=== PATIENT | female | born 1970 | race Caucasian/White ===

== ENCOUNTER 2023-11-24 18:58 | Outpatient (CLI) | payer OTHER, SELFPAY | END 2023-11-24 23:59 | LOC: LAB.DROPOF 18:58 | PROVIDERS: PCP Nurse Practitioner; Visit Provider Nurse Practitioner | DX: B35.1 Tinea unguium (principal); M79.674 Pain in right toe(s) | CPT/HCPCS: 87102; 87206; 87220 ==

== ENCOUNTER 2024-06-20 10:48 | Outpatient (CLI) | payer OTHER, SELFPAY ==
--- NOTE | 2024-06-20 10:51 | CT_ITS ---
FINAL REPORT CLINICAL HISTORY: CURRENT SMOKER 1PPD X40 YEARS COMPARISON: No prior FINDINGS: Axial images were obtained from the lung apex to the mid abdomen by computed tomography. Low-dose protocol was utilized. CTDl vol(mGy): 2.90 DLP (mGy-cm): 97.68 FINDINGS: There is no axillary adenopathy. There is no hilar or mediastinal adenopathy. The heart size is normal. There is no pericardial or pleural effusion. Limited images of the upper abdomen are unremarkable. Lung window images demonstrate no suspicious infiltrate or nodule. There is linear scarring in the right midlung and lingula. IMPRESSION: Lung RADS category 1. Recommend 12 month follow-up low-dose chest CT. Reviewed, Interpreted and Dictated by Candido Sol MD Transcribed by Ketty Mark Authenticated and [facility]
== END 2024-06-20 23:59 | disposition home or self-care (01) ==
LOC: RAD 10:48
PROVIDERS: PCP Nurse Practitioner Family; Visit Provider Nurse Practitioner Family
DX: Z12.2 Encounter for screening for malignant neoplasm of respiratory organs (principal); F17.210 Nicotine dependence, cigarettes, uncomplicated
CPT/HCPCS: 71271

== ENCOUNTER 2025-02-08 12:45 | Outpatient (CLI) | payer OTHER, SELFPAY ==
--- OUTSIDE RECORDS SUMMARY | 2025-01-30 06:49 | XMS_ITS | Continuity of Care Document ---
Author Organization [facility] Phone Care Team Providers Care Settlement Clerk Name Role Phone DECLINED, PCP Primary Care Unavailable EMRE ROBERTS Admitting EMRE ROBERTS Primary Attending EMRE ROBERTS Unavailable ALLERGIES AND ADVERSE REACTIONS ALLERGIES AND ADVERSE REACTIONS Code System Allergy Substance Adverse Reaction Date Reaction (Severity) Comment Status Reported By Updated By [id number] RXNorm Phenergan Adverse reaction to substance Not Specified active [id number] on April 19, 2024 7:44:45 PM UTC RESULTS Patient: PLAYER KEY Caldwell Date of : 1970 7 LABORATORY RESULTS ORDER 100: THYROID STIMULATI NG HORMONE (LOINC: 3016-3) ORDER DATE: January 27, 2025 5:00:00 PM UTC Specimen Source: Serum/Plasm a Specimen Type: Acellular blo od (serum or plasma) specimen PERFORMING LAB: [address] [id number] Result Comment: Final Result Date: January 27, 2025 5:45:00 PM UTC (TECH: KSM) LOINC TEST FLAG RESULT REFERENCE RANGE [place] BY 3016-3 Thyrotropin [Units/volume] in Serum or Plasma N 0.50 mIU/mL 0.34 mIU/mL - 4.80 mIU/mL January 27, 2025 5:45:00 PM UTC (TECH: KSM) ORDER 200: LIPID PANEL (LOIN C: 56818-9) ORDER DATE: January 27, 2025 5:00:00 PM UTC Specimen Source: Serum/Plasm a Specimen Type: Acellular blo od (serum or plasma) specimen PERFORMING LAB: [address] [id number] Result Comment: Final Result Date: January 27, 2025 5:45:00 PM UTC (TECH: KSM) LOINC TEST FLAG RESULT REFERENCE RANGE [place] BY 2571-8 Triglyceride [Mass/volume] in Serum or Plasma N 93 mg/dL 20 mg/dL - 200 mg/dL January 27, 2025 5:45:00 PM UTC (TECH: KSM) 3-3 Cholesterol [Mass/volume] in Serum or Plasma N 105 mg/dL 0 mg/dL - 200 mg/dL January 27, 2025 5:45:00 PM UTC (TECH: KSM) 2084-9 Cholesterol in HDL [Mass/volume] in Serum or Plasma L 48 mg/dL 60 mg/dL January 27, 2025 5:45:00 PM UTC (TECH: KSM) 44663-4 Cholesterol in LDL [Mass/volume] in Serum or Plasma by calculation L 38 mg/dL 100 mg/dL January 27, 2025 5:45:00 PM UTC (TECH: KSM) 8 Cholesterol in HDL/Cholesterol.tota l [Mass Ratio] in Serum or Plasma N 2 - 5 January 27, 2025 5:45:00 PM UTC (TECH: KSM) ORDER 300: AST SGOT (LOINC: 192-) ORDER DATE: January 27, 2025 5:00:00 PM UTC Specimen Source: Serum/Plasm a Specimen Type: Acellular blo od (serum or plasma) specimen PERFORMING LAB: [address] [id number] Result Comment: Final Result Date: January 27, 2025 5:45:00 PM UTC (TECH: KSM) LOINC TEST FLAG RESULT REFERENCE RANGE [place] BY 0-8 Aspartate aminotransferase [Enzymatic activity/volume] in Serum or Plasma N 18 U/L 15 U/L - 37 U/L January 27, 2025 5:45:00 PM UTC (TECH: KSM) ORDER 400: ALT SGPT (LOINC: 1742-6) ORDER DATE: January 27, 2025 5:00:00 PM UTC Specimen Source: Serum/Plasm a Specimen Type: Acellular blo od (serum or plasma) specimen PERFORMING LAB: [address] [id number] Result Comment: Final Result Date: January 27, 2025 5:45:00 PM UTC (TECH: KSM) LOINC TEST FLAG RESULT REFERENCE RANGE [place] BY 1742-6 Alanine aminotransfe rase [Enzymatic activity/volume] in Serum or Plasma N 23 U/L 12 U/L - 78 U/L January 27, 2025 5:45:00 PM UTC (TECH: KSM) ORDER 500: PHOSPHOROUS (LOIN C: 2777-1) ORDER DATE: January 27, 2025 5:00:00 PM UTC Specimen Source: Serum/Plasm a Specimen Type: Acellular blo od (serum or plasma) specimen PERFORMING LAB: [address] [id number] Result Comment: Final Result Date: January 27, 2025 5:45:00 PM UTC (TECH: KSM) LOINC TEST FLAG RESULT REFERENCE RANGE [place] BY 2777-1 Phosphate [Mass/volume] in Serum or Plasma N 3.6 mg/dL 2.5 mg/dL - 4.9 mg/dL January 27, 2025 5:45:00 PM UTC (TECH: KSM) ORDER 600: BILIRUBIN TOTAL ( LOINC: 1974-) ORDER DATE: January 27, 2025 5:00:00 PM UTC Specimen Source: Serum/Plasm a Specimen Type: Acellular blo od (serum or plasma) specimen PERFORMING LAB: [address] [id number] Result Comment: Final Result Date: January 27, 2025 5:45:00 PM UTC (TECH: KSM) LOINC TEST FLAG RESULT REFERENCE RANGE [place] BY 1974-2 Bilirubin.total [Mass/volume] in Serum or Plasma L 0.3 mg/dL 0.4 mg/dL - 1.5 mg/dL January 27, 2025 5:45:00 PM UTC (TECH: KSM) ORDER 700: ALKALINE PHOSPHAT ASE ALP (LOINC: 6768-6) ORDER DATE: January 27, 2025 5:00:00 PM UTC Specimen Source: Serum/Plasm a Specimen Type: Acellular blo od (serum or plasma) specimen PERFORMING LAB: [address] [id number] Result Comment: Final Result Date: January 27, 2025 5:45:00 PM UTC (TECH: KSM) LOINC TEST FLAG RESULT REFERENCE RANGE [place] BY 6768-6 Alkaline phosphatase [Enzymatic activity/volume] in Serum or Plasma N 84 U/L 50 U/L - 120 U/L January 27, 2025 5:45:00 PM [facility] (TECH: CARITO) LABORATORY NARRATIVE RESULTS Information is not available RADIOLOGY RESULTS Information is not available PATHOLOGY NARRATIVE RESULTS Information is not available MICROBIOLOGY RESULTS No Micro Labs/Results Exist for Patient BLOOD ADMIN RESULTS Information is not available MEDICATIONS HOME MEDICATIONS Status RXNORM NDC Medication Dose Route Frequency Dates Comments Reported By Updated By Drug Treatment Unknown DISCHARGE MEDICATIONS Status RXNORM NDC Medication Dose Route Frequency Dates Comments Physician Updated By No Discharge Medication Info rmation Available INPATIENT MEDICATIONS Status RXNORM NDC Medication Dose Route Frequency Rat e Quantity Dates Comments Physician Updated By No Inpatient Medication Info rmation Available SOCIAL HISTORY SOCIAL HISTORY SNOMED-CT Social History Element Description Effective Dates Offered Cessation Comment UpdatedBy [id number] Smoking Status Unknown If Ever Smoked SOCIAL HISTORY - Gender Sex: Female SOCIAL HISTORY - Status : status i nformation is not available Intention in Next Year: intention information is not available SOCIAL HISTORY - Sexual Behavior Sexual Orientation Gender Identity SNOMED-CT Description SNO MED -CT Description Activity Level No of Partners Partner Type UpdatedBy Information is not available HEALTH CONCERNS Problems Concern Status Health Concern problem infor mation not available. Smoking Status Status Years Used Consumed packs p er day Health Concern smoking histo ry information not available. Family History Concern Status Health Concern family histor y information not available. ENCOUNTERS ENCOUNTER INFORMATION Reason for Visit E11.9 Admission January 27, 2025 4:30:[address] [address] Discharge January 27, 2025 4:30:00 PM [facility] DISC HARGED TO HOME OR SELF CARE ENCOUNTER DIAGNOSES Notes information is not escobar ilable. Code System Diagnosis Onset Date Diagnosis information is not available. 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 COMPLICATION [id number] on January 30, 2025 10:48:37 AM UTC E78.2 ICD10 MIXED HYPERLIPIDEMIA [id number] on January 30, 2025 10:48:37 AM UTC F41.9 ICD10 ANXIETY DISORDER, UNSPECIFIE D [id number] on January 30, 2025 10:48:37 AM UTC R80.9 ICD10 PROTEINURIA, UNSPECIFIED GVI [id number] on January 30, 2025 10:48:37 AM UTC CARE TEAM Care Settlement Clerk Role PCP DECLINED Primary Care EMRE ROBERTS Admitting EMRE ROBERTS Primary Attending ERME ROBERTS Referring CARE TEAM CARE centerpuncher Role on Team Status Start Date End Date Update d By ARMANDO CASTILLO APRN Referring normal January 27, 2025 4:00:00 AM UTC January 27, 2025 4:30:00 PM UTC [id number] on January 27, 2025 4:34:55 PM UTC ARMANDO CASTILLO APRN Attending normal January 27, 2025 4:00:00 AM UTC January 27, 2025 4:30:00 PM UTC [id number] on January 27, 2025 4:34:55 PM UTC ARMANDO CASTILLO APRN Admitting normal January 27, 2025 4:00:00 AM UTC January 27, 2025 4:30:00 PM UTC [id number] on January 27, 2025 4:34:55 PM UTC DECLINED PCP PCP normal January 27, 2025 4:00:00 AM UTC January 27, 2025 4:30:00 PM UTC [id number] on January 27, 2025 4:34:55 PM UTC
--- OUTSIDE RECORDS SUMMARY | 2025-01-30 06:53 | XMS_ITS | Continuity of Care Document ---
Author Organization [facility] Phone Care Team Providers Care Adjunct Spanish Instructor Name Role Phone FRANCK DECKER JR Unavailable DECLINED, PCP Primary Care Unavailable FRANCK DECKER JR Admitting [phone] FRANCK DECKER JR Primary Attending ALLERGIES AND ADVERSE REACTIONS ALLERGIES AND ADVERSE REACTIONS Code System Allergy Substance Adverse Reaction Date Reaction (Severity) Comment Status Reported By Updated By 1116 RXNorm Phenergan Adverse reaction to substance Not Specified active [id number] on April 19, 2024 7:44:45 PM UTC RESULTS Patient: PLAYER KEY Caldwell Date of : 1970 8 LABORATORY RESULTS ORDER 300: BASIC METABOLIC P NADIYA (LOINC: 00795-5) ORDER DATE: January 27, 2025 4:56:00 PM UTC Specimen Source: Serum/Plasm a Specimen Type: Acellular blo od (serum or plasma) specimen PERFORMING LAB: [address] [id number] Result Comment: Final Result Date: January 27, 2025 5:36:00 PM [place] (TECH: KSM) LOINC TEST FLAG RESULT REFERENCE RANGE [place] BY 2951-2 Sodium [Moles/volume] in Serum or Plasma N 138 mmol/L 136 mmol/L - 145 mmol/L January 27, 2025 5:36:00 PM UTC (TECH: KSM) 2823-3 Potassium [Moles/volume] in Serum or Plasma N 3.9 mmol/L 3.5 mmol/L - 5.1 mmol/L January 27, 2025 5:36:00 PM UTC (TECH: [facility]SM) 2075-0 Chloride [Moles/volume] in Serum or Plasma N 99 mmol/L 98 mmol/L - 107 mmol/L January 27, 2025 5:36:00 PM UTC (TECH: [employer]) 2027-9 Carbon dioxide, total [Moles/volume] in Serum or Plasma H 35 mmol/L 21 mmol/L - 32 mmol/L January 27, 2025 5:36:00 PM UTC (TECH: [employer]) 58653-5 Anion gap 3 in Serum or Plasma N 4.0 January 27, 2025 5:36:00 PM UTC (TECH: [employer]) 2345-7 Glucose [Mass/volume] in Serum or Plasma H 111 mg/dL 70 mg/dL - 110 mg/dL January 27, 2025 5:36:00 PM UTC (TECH: [employer]) 3094-0 Urea nitrogen [Mass/volume] in Serum or Plasma N 18 mg/dL 7 mg/dL - 18 mg/dL January 27, 2025 5:36:00 PM UTC (TECH: [employer]) 2160-0 Creatinine [Mass/volume] in Serum or Plasma N 1.0 mg/dL 0.6 mg/dL - 1.0 mg/dL January 27, 2025 5:36:00 PM UTC (TECH: [employer]) 3097-3 Urea nitrogen/Creatinine [Mass Ratio] in Serum or Plasma N 18.0 9 - January 27, 2025 5:36:00 PM UTC (TECH: [employer]) 54293-6 Glomerular filtration rate/1.73 sq M.predicted by Creatinine-based formula (MDRD) N 67 mL/min >60 January 27, 2025 5:36:00 PM UTC (TECH: [employer]) 05284-0 Osmolality of Serum or Plasma by calculated by sum of electrolytes N 290 mosm/kg 275 mosm/kg - 301 mosm/kg January 27, 2025 5:36:00 PM UTC (TECH: [employer]) 35432-3 Calcium [Mass/volume] in Serum or Plasma N 9.2 mg/dL 8.5 mg/dL - 10.1 mg/dL January 27, 2025 5:36:00 PM UTC (TECH: [employer]) ORDER 400: HEMOGLOBIN A1C (L OINC: 4548-4) ORDER DATE: January 27, 2025 4:56:00 PM UTC Specimen Source: Whole Blood Specimen Type: Whole blood s ample PERFORMING LAB: [address] [id number] Result Comment: Final Result Date: January 27, 2025 5:36:00 PM UTC (TECH: [employer]) LOINC TEST FLAG RESULT REFERENCE RANGE [place] BY 4548-4 Hemoglobin A1c/Hemoglobin.tota l in Blood N 5.8 % 4.5 % - 6.2 % January 27, 2025 5:36:00 PM UTC (TECH: [employer]) 67480-7 Glucose mean value [Mass/volume] in Blood Estimated from glycated hemoglobin N 120 mg/dl 82 mg/dl - 131 mg/dl January 27, 2025 5:36:00 PM UTC (TECH: [employer]) ORDER 500: CBC AUTO W DIFF ( LOINC: 70427-8) ORDER DATE: January 27, 2025 4:56:00 PM UTC Specimen Source: Whole Blood Specimen Type: Whole blood s ample PERFORMING LAB: [address] [id number] Result Comment: Final Result Date: January 27, 2025 5:13:00 PM UTC (TECH: [employer]) LOINC TEST FLAG RESULT REFERENCE RANGE [place] BY 6690-2 Leukocytes [#/volume ] in Blood by Automated count H 12.4 10^3/uL 4.5 10^3/uL - 11.5 10^3/uL January 27, 2025 5:13:00 PM UTC (TECH: [employer]) 789-8 Erythrocytes [#/volu me] in Blood by Automated count N 5.52 10^6/uL 4.25 10^6/uL - 5.57 10^6/uL January 27, 2025 5:13:00 PM UTC (TECH: [employer]SM) 718-7 Hemoglobin [Mass/volume] in Blood H 17.0 g/dL 12.0 g/dL - 15.7 g/dL January 27, 2025 5:13:00 PM UTC (TECH: [employer]) 92894-8 Hematocrit [Volume Fraction] of Blood H 50.7 % 36.0 % - 47.0 % January 27, 2025 5:13:00 PM UTC (TECH: [employer]) 787-2 Erythrocyte mean corpuscular volume [Entitic volume] by Automated count N 91.8 fl 80 fl - 95 fl January 27, 2025 5:13:00 PM UTC (TECH: [employer]) 52907-9 Erythrocyte mean corpuscular hemoglobin [Entitic mass] in Blood from Fetus by Automated count N 30.8 pg 27.0 pg - 34.0 pg January 27, 2025 5:13:00 PM UTC (TECH: [employer]) 32902-7 Erythrocyte mean corpuscular hemoglobin concentration [Mass/volume] in Blood from Fetus by Automated count N 33.5 g/dL 32.0 g/dL - 36.0 g/dL January 27, 2025 5:13:00 PM UTC (TECH: [employer]) 46316-1 Platelets [#/volume] in Blood N 242 10^3/uL 150 10^3/uL - 450 10^3/uL January 27, 2025 5:13:00 PM UTC (TECH: [employer]) 36534-5 Erythrocyte distribution width [Ratio] N 13.0 % 12.3 % - 15.1 % January 27, 2025 5:13:00 PM UTC (TECH: [employer]) 12003-5 Platelet mean volume [Entitic volume] in Blood by Automated count N 9.7 fl 7.4 fl - 10.4 fl January 27, 2025 5:13:00 PM UTC (TECH: [employer]) 76784-7 Granulocytes/100 leukocytes in Blood by Automated count N 70.9 % 40 % - 75 % January 27, 2025 5:13:00 PM UTC (TECH: [employer]) 736-9 Lymphocytes/100 leukocytes in Blood by Automated count N 19.6 % 15 % - 57 % January 27, 2025 5:13:00 PM UTC (TECH: [employer]) 5905-5 Monocytes/100 leukocytes in Blood by Automated count N 6.3 % 4.0 % - 12.0 % January 27, 2025 5:13:00 PM UTC (TECH: [employer]) 713-8 Eosinophils/100 leukocytes in Blood by Automated count N 2.6 % 0.0 % - 4.0 % January 27, 2025 5:13:00 PM UTC (TECH: [employer]) 706-2 Basophils/100 leukocytes in Blood by Automated count N 0.2 % 0.0 % - 1.0 % January 27, 2025 5:13:00 PM UTC (TECH: [employer]) 11772-6 Immature granulocyte s [#/volume] in Blood N 0.4 % 0.0 % - 0.8 % January 27, 2025 5:13:00 PM UTC (TECH: [employer]) 95738-0 Granulocytes [#/volu me] in Blood by Automated count N 8.77 10^3/uL January 27, 2025 5:13:00 PM UTC (TECH: [employer]) 731-0 Lymphocytes [#/volum e] in Blood by Automated count N 2.43 10^3/uL January 27, 2025 5:13:00 PM UTC (TECH: [employer]) 742-7 Monocytes [#/volume] in Blood by Automated count N 0.78 10^3/uL January 27, 2025 5:13:00 PM UTC (TECH: [employer]) 711-2 Eosinophils [#/volum e] in Blood by Automated count N 0.32 10^3/uL January 27, 2025 5:13:00 PM UTC (TECH: [employer]) 704-7 Basophils [#/volume] in Blood by Automated count N 0.02 10^3/uL January 27, 2025 5:13:00 PM UTC (TECH: [employer]) 77034-0 Immature granulocyte s [#/volume] in Blood N 0.05 10^3/uL January 27, 2025 5:13:00 PM UTC (TECH: [employer]) 75007-1 Manual differential performed [Presence] in Blood N NO January 27, 2025 5:13:00 PM UTC (TECH: [employer]) LABORATORY NARRATIVE RESULTS Information is not available [...] Description Effective Dates Offered Cessation Comment UpdatedBy [id number] Smoking Status Unknown If Ever Smoked SOCIAL [...] available. ENCOUNTERS ENCOUNTER INFORMATION Reason for Visit Z87.898 Admission January 27, 2025 4:40:[address] [address] Discharge January 27, 2025 4:40:00 PM [facility] DISC HARGED TO HOME OR SELF CARE ENCOUNTER DIAGNOSES Notes information is not escobar ilable. Code System Diagnosis Onset Date Diagnosis information is not available. ABSTRACT DIAGNOSES Code System Diagnosis Updated By Z01.818 ICD10 ENCOUNTER FOR OT HER PREPROCEDURAL EXAMINATION [id number] on January 30, 2025 10:53:39 AM [facility] R73.09 ICD10 OTHER ABNORMAL GLUCOSE [id number] on January 30, 2025 10:53:39 AM [facility] Z87.898 ICD10 PERSONAL HISTORY OF OTHER SPECIFIED CONDITIONS [id number] on January 30, 2025 10:53:39 AM [facility] Z01.818 ICD10 ENCOUNTER FOR OT HER PREPROCEDURAL EXAMINATION [id number] on January 30, 2025 10:53:39 AM [facility] R73.09 ICD10 OTHER ABNORMAL GLUCOSE [id number] 42 on January 30, 2025 10:53:39 AM [facility] Z87.898 ICD10 PERSONAL HISTORY OF OTHER SPECIFIED CONDITIONS [id number] on January 30, 2025 10:53:39 AM [facility] CARE TEAM Care Adjunct Spanish Instructor Role FRANCK DECKER Referring PCP DECLINED Primary Care FRANCK DECKER Admitting FRANCK DECKER Primary Attending CARE TEAM CARE audio production manager Role on Team Status Start Date End Date Update d By BRIANNE JUÁREZ JR, MD Referring normal January 27, 2025 4:00:00 AM [facility] January 27, 2025 4:40:00 PM [facility] [id number] on January 27, 2025 4:44:41 PM [facility] BRIANNE JUÁREZ JR, MD Attending normal January 27, 2025 4:00:00 AM [facility] January 27, 2025 4:40:00 PM [facility] [id number] on January 27, 2025 4:44:41 PM [facility] BRIANNE JUÁREZ JR, MD Admitting normal January 27, 2025 4:00:00 AM [facility] January 27, 2025 4:40:00 PM [facility] [id number] on January 27, 2025 4:44:41 PM [facility] DECLINED PCP PCP normal January 27, 2025 4:00:00 AM [facility] January 27, 2025 4:40:00 PM [facility] [id number] on January 27, 2025 4:44:41 PM [facility]
--- OUTSIDE RECORDS SUMMARY | 2025-01-30 06:56 | XMS_ITS | Continuity of Care Document ---
Author Organization [facility] Phone Care Team Providers Care Fitter'S Assistant Name Role Phone DECLINED, PCP Primary Care Unavailable FRANCK DECKER JR Unavailable FRANCK DECKER JR Primary Attending [phone] FRANCK DECKER JR Admitting [phone] ALLERGIES AND ADVERSE REACTIONS ALLERGIES AND ADVERSE REACTIONS Code System Allergy Substance Adverse Reaction Date Reaction (Severity) Comment Status Reported By [place] By [id number] RXNorm Phenergan Adverse reaction to substance Not Specified active [id number] on April 19, 2024 7:44:45 PM [facility] MEDICATIONS HOME MEDICATIONS Status RXNORM NDC Medication [...] Description Effective Dates Offered Cessation Comment UpdatedBy [id number] Smoking Status Unknown If Ever Smoked SOCIAL [...] for Visit Z87.898 Admission January 27, 2025 4:45:[address] [address] Discharge January 27, 2025 4:45:00 PM [facility] DISC HARGED TO HOME OR SELF CARE ENCOUNTER DIAGNOSES Notes information is not escobar ilable. Code System Diagnosis Onset Date Diagnosis information is not available. ABSTRACT DIAGNOSES Code System Diagnosis Updated By Z01.818 ICD10 ENCOUNTER FOR OT HER PREPROCEDURAL EXAMINATION [id number] on January 30, 2025 10:56:21 AM [facility] R73.09 ICD10 OTHER ABNORMAL GLUCOSE [id number] 42 on January 30, 2025 10:56:21 AM [facility] Z87.898 ICD10 PERSONAL HISTORY OF OTHER SPECIFIED CONDITIONS [id number] on January 30, 2025 10:56:21 AM [facility] Z01.818 ICD10 ENCOUNTER FOR OT HER PREPROCEDURAL EXAMINATION [id number] on January 30, 2025 10:56:21 AM [facility] I45.10 ICD10 UNSPECIFIED RIGHT BUNDLE-BRA NCH BLOCK [id number] on January 30, 2025 10:56:21 AM [facility] R73.09 ICD10 OTHER ABNORMAL GLUCOSE [id number] 42 on January 30, 2025 10:56:21 AM [facility] R94.31 ICD10 ABNORMAL ELECTROCARDIOGRAM [ ECG] [EKG] [id number] on January 30, 2025 10:56:21 AM [facility] Z87.898 ICD10 PERSONAL HISTORY OF OTHER SPECIFIED CONDITIONS [id number] on January 30, 2025 10:56:21 AM [facility] CARE TEAM Care Fitter'S Assistant Role PCP DECLINED Primary Care FRANCK DECKER Referring FRANKC DECKER Primary Attending FRANCK DECKER Admitting CARE TEAM CARE crab fisher Role on Team Status Start Date End Date Update d By BRIANNE JUÁREZ JR, MD Referring normal January 27, 2025 4:00:00 AM [facility] January 27, 2025 4:45:00 PM [facility] [id number] on January 27, 2025 4:46:48 PM [facility] BRIANNE JUÁREZ JR, MD Attending normal January 27, 2025 4:00:00 AM [facility] January 27, 2025 4:45:00 PM [facility] [id number] on January 27, 2025 4:46:48 PM [facility] BRIANNE JUÁREZ JR, MD Admitting normal January 27, 2025 4:00:00 AM [facility] January 27, 2025 4:45:00 PM [facility] [id number] on January 27, 2025 4:46:48 PM UTC DECLINED PCP PCP normal January 27, 2025 4:00:00 AM UTC January 27, 2025 4:45:00 PM [place] [id number] on January 27, 2025 4:46:48 PM UTC
--- OUTSIDE RECORDS SUMMARY | 2025-01-30 07:02 | XMS_ITS | Continuity of Care Document ---
Author Organization [facility] Phone Care Team Providers Care Monument Stonecutter Name Role Phone FRANCK DECKER JR Admitting DECLINED, PCP Primary Care Unavailable FRANCK DECKER JR Unavailable [phone] FRANCK DECKER JR Primary Attending ALLERGIES AND ADVERSE REACTIONS ALLERGIES AND ADVERSE REACTIONS Code System Allergy Substance Adverse Reaction Date Reaction (Severity) Comment Status [place] [id number] RXNorm Phenergan Adverse reaction to substance Not Specified active [id number] on April 19, 2024 7:44:45 PM [facility] RESULTS Patient: PLAYER KEY Caldwell Date of : 1970 7 LABORATORY RESULTS Information is not available LABORATORY NARRATIVE RESULTS Information is not available RADIOLOGY RESULTS ORDER 100: CHEST PA AND LAT (LOINC: 87939-4) ORDER DATE: January 27, 2025 5:13:00 PM [facility] PERFORMING LAB: [address] [id number] Final Result Date: January 27 9:35:[address] [place] [address] Name: KEY BANSAL Exam Date: 01/27/2025 : 1970 Age 54 years Gender: F Physician: FRANCK DECKER Facility: [facility] Facility HSV: Outpatient Exam: CHEST PA & LAT EXAM: 2 XR views of the chest INDICATION: pre-op COMPARISON: None Available. FINDINGS: The cardiomediastinal silhouette is within normal limits. No evidence of pleural effusion, pneumothorax, or focal consolidation. IMPRESSION: No acute finding Electronically signed by: Tom Saeed MD 01/28/2025 01:55 AM EDT RP Dictated By: TOM SAEED Transcribed By: Transcribed On: 01/27/2025 5:35 PM Electronically signed by: TOM SAEED 01/27/2025 Thank you for referring KEY BANSAL to [facility]. Legally authenticated by LAW RODRIGUEZ MD 2025-01-27 17:35:24 PATHOLOGY NARRATIVE RESULTS Information is not available [...] Description Effective Dates Offered Cessation Comment UpdatedBy [id number] Smoking Status Unknown If Ever Smoked SOCIAL [...] for Visit Z87.898 Admission January 27, 2025 4:49:[address] [id number] Discharge January 27, 2025 4:49:00 PM [facility] DISC HARGED TO HOME OR SELF CARE ENCOUNTER DIAGNOSES Notes information is not escobar ilable. Code System Diagnosis Onset Date Diagnosis information is not available. ABSTRACT DIAGNOSES Code System Diagnosis Updated By Z01.818 ICD10 ENCOUNTER FOR OT HER PREPROCEDURAL EXAMINATION [id number] on January 30, 2025 11:01:57 AM [facility] R73.09 ICD10 OTHER ABNORMAL GLUCOSE [id number] on January 30, 2025 11:01:57 AM [facility] Z87.898 ICD10 PERSONAL HISTORY OF OTHER SPECIFIED CONDITIONS [id number] on January 30, 2025 11:01:57 AM [facility] Z01.818 ICD10 ENCOUNTER FOR OT HER PREPROCEDURAL EXAMINATION [id number] on January 30, 2025 11:01:57 AM [facility] R73.09 ICD10 OTHER ABNORMAL GLUCOSE [id number] on January 30, 2025 11:01:57 AM [facility] Z87.898 ICD10 PERSONAL HISTORY OF OTHER SPECIFIED CONDITIONS [id number] on January 30, 2025 11:01:57 AM [facility] CARE TEAM Care Monument Stonecutter Role FRANCK EDCKER Admitting PCP DECLINED Primary Care FRANCK DECKER Referring FRANCK DECKER Primary Attending CARE TEAM CARE online program coordinator Role on Team Status Start Date End Date Update d By BRIANNE JUÁREZ JR, MD Referring normal January 27, 2025 4:00:00 AM [facility] January 27, 2025 4:49:00 PM [facility] [id number] on January 27, 2025 4:50:34 PM [facility] BRIANNE JUÁREZ JR, MD Attending normal January 27, 2025 4:00:00 AM [facility] January 27, 2025 4:49:00 PM [facility] [id number] on January 27, 2025 4:50:34 PM [facility] BRIANNE JUÁREZ JR, MD Admitting normal January 27, 2025 4:00:00 AM [facility] January 27, 2025 4:49:00 PM [facility] [id number] on January 27, 2025 4:50:34 PM [facility] DECLINED PCP PCP normal January 27, 2025 4:00:00 AM [facility] January 27, 2025 4:49:00 PM [facility] [id number] on January 27, 2025 4:50:34 PM [facility]
--- OUTSIDE RECORDS SUMMARY | 2025-02-08 13:44 | XMS_ITS | Clinical Summary ---
Author Organization [facility] are Address [address] [place] [phone] Phone Care Team Providers Care Low Vision Therapist Name Role Phone Unavailable Unavailable Conditions or Problems No information available. Medications No information available. Medications Administered No information available. Allergies, Adverse Reactions, Alerts No information available. Results No information available. Plan of Care No information available. Procedures No information available. Vital Signs No information available. Immunizations No information available. Advance Directives No information available.
--- OUTSIDE RECORDS SUMMARY | 2025-02-08 13:45 | XMS_ITS | Data Portability ---
Author Organization [facility] [employer] [place] [facility] Address [address] [place] [address] Assessment Encounter Date Assessment Date Assessment LastModified by Organization Details LastModified Time 07/12/2024 07/12/2024 Walk test - 02 sat at rest was 91% at RA. After walking about 90 seconds, 02 saturation was 84%. After application of O2 via NC, 02 saturation improved to 95%. We will start supplemental oxygen. We will consider pulmonology referral in the future as she is already on trelegy. We specifically discussed smoking cessation and she is not ready to quit. We had in depth conversation about the risks of smoking while using supplemental oxygen and to never smoke while using the oxygen. She voiced understanding. Continue with referral to ortho. Trial of lyrica to help with nerve pain. TREVOR reviewed and appropriate. Continue seroquel. Proceed with plan to see later this month. Treatment for current COPD exacerbation as outlined per plan below. Follow up in 2-3 weeks to recheck COPD, neuropathic pain - sooner if needed Not available 07/12/2024 14:16:25 07/31/2024 07/31/2024 Increase lyrica dose. RF clonazepam, tolerating without issue. TREVOR reviewed and appropriate. Glucometer is broken - RF sent. Increase ozempic to 1 mg weekly. Referral to pulmonology at this point. Patient was given sample of Breztri (14 doses) as packaged per bowling ball mold assembler to try instead of trelegy. 2 puffs BID, written instructions provided. 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 Samples of 1.5 mg vraylar (7 doses) as packaged per bowling ball mold assembler provided to patient for her to take WITH her 3 mg capsules. Smoking cessation counseling x 4.5 minutes. She chooses nicotine replacement. Patches sent to pharmacy. Patient instructed never to smoke while using her home oxygen and not to smoke while patch in place - she voices understanding. Follow up in 4 weeks for recheck, sooner if needed. Consider tdap and pneumonia vaccinations at follow up. Due for A1C, urine microalbumin, and urine drug screen at follow up. + Cologuard in 02/2024, has she scheduled colonoscopy yet? Not available 08/03/2024 08:51:55 08/25/2024 08/25/2024 A1C improved fro m previous. Will increase Ozempic to 2 mg weekly. Continue efforts to quit smoking. Do not smoke while using O2. Breztri as prescribed. Continue with plan to see pulmonology. Continue O2 therapy. Updated vaccines per plan below. Continue with plan to see for bipolar/insomnia. Discussed trial of extended release melatonin OTC. UDS updated today. Controlled substance agreement update due at follow up. Follow up in 3 months for recheck. Plan for A1C fingerstick at that time. Not available 08/25/2024 12:39:07 01/10/2025 01/10/2025 Diabetes - Diabetic eye exam - had at [facility]. Labs today. On a statin. On CRISTAL inhibitor. Continue current regimen, pending lab results. COPD - continue current regimen. Call pulmonology, I suspect follow up needs to be scheduled. Sleep apnea - Start CPAP as previously recommended to hopefully help with daytime sleepiness and sleep quality. Bipolar/insomnia/ anxiety - Stop seroquel. She was on multiple anti-psychotic medications. Start trazodone. Keep appt with behavioral health. Her med regimen needs a psychiatric provider to evaluate and adjust. HTN - Decrease lisinopril to 5 mg daily. Monitor at home. Back - XR per plan. Further plan with result. Smoking - encouraged cessation. She has cut back to 1/2 ppd from 2 ppd. Congratulated efforts. Wants to try nicotine patches again. Prescribed per plan below. Follow up in 2 weeks to recheck insomnia via telehealth. Not available 01/11/2025 16:23:04 01/26/2025 01/26/2025 HTN - Benefit from both chlorthalidone and lisinopril for cardiac and kidneys, will decrease both doses to help with hypotension. May consider stopping one at follow up if hypotension continues. Continue current regimen. Labs per plan below. She is going to hospital this weekend for pre-op labs and will seed cone picker these orders as well. Follow up in 1 month for recheck HTN, COPD, insomnia, sooner if needed. Not available 01/29/2025 12:12:06 Plan of Treatment Reminders Order Date Submit Date Provider Last Modified By Organization Details Last Modified Time Details Appointments SAME DAY ACCESS 2024 09:00A M Transporter Not available Not available Not available SAME DAY ACCESS 2024 01:30P M Transporter Not available Not available Not available BH NEW INTAKE 60 2024 02:00P M LOPEZ He Not available Not available Not available Lab lipid panel, serum 2024 025 RATNA [facility] ([place]), [address] [place], [address], 01/27/2025 14:50:38 CBC w/ auto diff 2024 025 [email or web address] [facility] ([place] [address] [place], [address], 02/02/2025 08:39:04 CMP, serum or plasma 2024 025 [email or web address] [facility] ([place] [address] [place], [address], 02/02/2025 08:39:04 TSH, ultra- sensit real, serum 2024 025 [email or web address] [facility] ([place] [address] [place], [address], 02/02/2025 08:39:04 lipid panel, serum 2024 025 [email or web address] [facility] ([place] [address] [place], [address], 01/31/2025 15:00:23 HbA1c (hemog lobin A1c), blood 2024 025 [email or web address] [facility] ([place] [address] [place], [address], 02/01/2025 08:37:25 CMP, serum or plasma 2024 025 [email or web address] [facility] ([place] [address] [place], [address], 01/31/2025 15:00:23 CBC w/ auto diff 2024 025 [email or web address] [facility] ([place] [address] [place], [address], 01/31/2025 15:00:23 unlist ed lab - drug screen 10, scr w/conf ,ur 2023 024 RATNA [facility] ([place] [address] [place], [address], 08/30/2024 12:06:53 microa lbumin /creat inine, mass ratio, urine [address], [address], 08/25/2024 10:06:52 HbA1c (hemog lobin A1c), blood [address], [address], 08/25/2024 10:06:53 Referral pulmon ologis t referr al - First availa ble 2023 024 RATNA Collier MD, [address], [address], [place], [address], 10/25/2024 14:45:33 otolar yngolo gist referr al - Does not want CPAP - please eval for other treatm ent option s 2023 024 [email or web address] Snehal Thompson MD, [address] , [address], [place], [address], 08/24/2024 14:28:18 Procedures None record ed. Surgeries None record ed. Imaging XR, thorac ic spine, 3 view [email or web address] [place] [address], [facility]5 [facility], [place], [address], 01/12/2025 09:57:18 Medication Orders chlort halido ne 12.5 mg tablet 2024 025 [facility], [address] [place] [address], [address], 01/26/2025 14:49:35 lisino pril 2.5 mg tablet 2024 025 [facility], [address] [place] [address], [address], 01/26/2025 14:49:35 trazod one 100 mg tablet 2024 025 [facility], [address] [place] [address], [address], 01/26/2025 14:49:34 prazos in 1 mg capsul e 2024 025 [facility], [address] [place] [address], [address], 01/26/2025 14:49:34 lisino pril 5 mg tablet 2024 025 [facility], [address] [place] [address], [address], 01/29/2025 12:19:41 trazod one 50 mg tablet 2024 025 [facility], [address] [place] [address], [address], 01/10/2025 11:51:25 Ventol in HFA 90 mcg/ac tuatio n aeroso l inhale r 2024 025 [facility], [address] [place] [address], [address], 01/10/2025 11:51:31 prazos in 1 mg capsul e 2024 025 [facility], [address] [place] [address], [address], 01/10/2025 11:51:34 nicoti ne 21 mg/24 hr daily transd ermal patch 2024 025 [facility], [address] [place] [address], [address], 01/10/2025 11:51:33 clonaz epam 1 mg tablet 2024 025 [facility], [address] [place] [address], [address], 01/10/2025 11:52:17 glipiz josue 5 mg tablet 2024 025 [facility], [address] [place] [address], [address], 01/10/2025 11:51:35 OneTou ch Ultra Test strips 2024 025 [facility], [address] [place] [address], [address], 01/10/2025 11:51:20 pregab tess 75 mg capsul e 2023 024 [facility], [address] [place] [address], [address], 08/25/2024 10:07:03 Ozempi c 2 mg/dos e (8 mg/3 mL) subcut aneous pen inject or 2023 024 [facility], [address] [place] [address], [address], 08/25/2024 10:06:59 Ventol in HFA 90 mcg/ac tuatio n aeroso l inhale r 2023 024 [facility], [address] [place], [address], 08/25/2024 10:07:02 Breztr i Aerosp here 160 mcg-9m cg-4.8 mcg/ac tuatio n HFA aeroso l inhale r [email or web address] [facility], [address] [place], [address], 08/25/2024 12:50:50 nicoti ne 21 mg/24 hr daily transd ermal patch 2023 [facility], [address] [place] [address], [address], 07/31/2024 13:38:09 Vrayla r 4.5 mg capsul e 2023 [facility], [address] [place] [address], [address], 07/31/2024 13:38:06 clonaz epam 1 mg tablet 2023 [facility], [address] [place] [address], [address], 08/03/2024 08:46:11 pregab tess 50 mg capsul e 2023 024 [facility], [address] [place], [address], 08/25/2024 10:21:36 Ozempi c 1 mg/dos e (4 mg/3 mL) subcut aneous pen inject or 2023 024 [facility], [address] [place] [address], [address], 08/25/2024 09:56:29 quetia pine 300 mg tablet 2023 024 [facility], [address] [place], [address], 01/10/2025 11:36:46 azithr omycin 250 mg tablet 2023 024 [facility], [address] [place], [address], 07/31/2024 13:13:06 predni sone 20 mg tablet 2023 024 [facility], [address] [place], [address], 07/31/2024 13:24:58 pregab tess 25 mg capsul e 2023 024 [facility], [address] [place], [address], 08/25/2024 13:31:38 Patient TargetsNo targets recorded. Patient Instructions Encounter Date Encounter Id Patient Instructions Last Modified By Organization Details Last Modified Time 07/12/2024 [id number] bipolar disorder : care instructions Not available 07/12/2024 14:16:27 learning about mood disorders Not available 07/12/2024 14:16:27 sleep apnea: car e instructions Not available 07/12/2024 12:36:22 carpal tunnel syndrome: care instructions Not available 07/12/2024 12:36:22 07/31/2024 [id number] chronic obstructive pulmonary disease (COPD): care instructions Not available 07/31/2024 13:37:57 learning about copd and how to prevent lung infections Not available 07/31/2024 13:37:57 Quitting Tobacco : Care Instructions Not available 07/31/2024 13:37:57 smoking cessatio n counseling, greater than 3 minutes up to 10 minutes* Not available 07/31/2024 13:37:57 bipolar disorder : care instructions Not available 07/31/2024 13:37:58 learning about mood disorders Not available 07/31/2024 13:37:57 Home Blood Sugar Test: About This Test Not available 07/31/2024 13:37:57 01/10/2025 [id number] learning about type 2 diabetes Not available 01/10/2025 11:51:03 type 2 diabetes: care instructions Not available 01/10/2025 11:51:04 insomnia: care instructions Not available 01/10/2025 11:51:03 bipolar disorder : care instructions Not available 01/10/2025 11:51:04 learning about mood disorders Not available 01/10/2025 11:51:03 01/26/2025 [id number] learning about type 2 diabetes Not available 01/26/2025 14:49:27 type 2 diabetes: care instructions Not available 01/26/2025 14:49:27 Reason for Referral Universal Grinder Operator Referral fo r Obstructive sleep apnea syndrome Does not want CPAP - please eval for other treatment options Referring Physician: Jojo Rausch [facility], Encounter Date: 07/12/2024 Capital Equipment Specialist Referral for C hronic obstructive pulmonary disease First available Referring Physician: Jojo Rausch [facility], Encounter Date: 07/31/2024 Results Created Date Observation Date Name Description Value Unit Range Abnormal Flag Note LastModifiedBy Organization Detail LastModifiedTime 06/28/20 24 06/29/2024 HCV ANTIB YAW CASCA DE(PC R/GEN O) HCV Ab Reacti ve non reacti ve abnormal Not Available [facility] [place] [place] [facility] [address] [place], [address], 06/30/2024 22:06:37 06/28/2006/29/2024 HCV ANTIB YAW CASCA DE(PC R/GEN O) test information: Commen t The quant itati ve range of this assay is 15 IU/mL to 100 joel on IU/mL . Not Available [facility] ([facility] [place] [place] [facility] [address] [place], [address], 06/30/2024 22:06:37 06/28/20 24 06/30/2024 HCV ANTIB YAW CASCA DE(PC R/GEN O) hepatitis C quantitation HCV Not Detect ed IU/mL Not Available [facility] [place] [place] [facility] [address] [facility], [place], [address], 06/30/2024 22:06:37 06/28/20 24 06/30/2024 HCV ANTIB YAW CASCA DE(PC R/GEN O) HCV log10 RECEIVABLES SPECIALIST Not Available [facility] [place] [place] [facility] [address] [facility], [place], [address], 06/30/2024 22:06:37 06/28/2006/30/2024 HCV ANTIB YAW CASCA DE(PC R/GEN O) interpretati on: Commen t Posit real HCV antib yaw scree n witho ut the prese nce of HCV RNA is consi stent with a resol dhruv past infec tion or a false posit real HCV antib yaw. Consi margie repea t testi ng after one month . Not Available [facility] ([facility] [place] [place] [facility] [address] [facility], [place], [address], 06/30/2024 22:06:37 06/28/20 24 06/30/2024 HCV ANTIB YAW CASCA DE(PC R/GEN O) HCV genotype COMMEN T Not indic ated Not Available [facility] [place] [place] [facility] [address] [facility], [place], [address], 06/30/2024 22:06:37 08/25/20 24 08/30/2024 DRUG SCREE N 10, SCR W/CON F,UR creatinine 201 mg/dL REFER ENCE RANGE : Ref Range >=20 Not Available [facility] ([facility] [place] [place] [facility] [address] [facility], [place], [address], 08/30/2024 12:06:53 08/25/20 24 08/30/2024 DRUG SCREE N 10, SCR W/CON F,UR ethyl alcohol enzymatic Negati ve g/dL cutoff :0.020 Not Available [facility] ([facility] [place] [place] [facility] [address] [place], [address], 08/30/2024 12:06:53 08/25/20 24 08/30/2024 DRUG SCREE N 10, SCR W/CON F,UR amphetamines ia Negati ve NG/mL cutoff :300 Not Available [facility] ([facility] [place] [place] [facility] [address] [place], [address], 08/30/2024 12:06:53 08/25/20 24 08/30/2024 DRUG SCREE N 10, SCR W/CON F,UR barbiturates ia Negati ve NG/mL cutoff :200 Not Available [facility] ([facility] [place] [place] [facility] [address] [place], [address], 08/30/2024 12:06:53 08/25/20 24 08/30/2024 DRUG SCREE N 10, SCR W/CON F,UR benzodiazepi cam ia COMMEN T NG/mL cutoff :50 Furth er testi ng indic ated Not Available [facility] ([facility] [place] [place] [facility] [address] [place], [address], 08/30/2024 12:06:53 08/25/20 24 08/30/2024 DRUG SCREE N 10, SCR W/CON F,UR cocaine metabolite ia Negati ve NG/mL cutoff :150 Not Available [facility] ([facility] [place] [place] [facility] [address] [place], [address], 08/30/2024 12:06:53 08/25/20 24 08/30/2024 DRUG SCREE N 10, SCR W/CON F,UR cannabinoids ia COMMEN T NG/mL cutoff :20 Furth er testi ng indic ated Not Available [facility] ([facility] [place] [place] [facility] [address] [place], [address], 08/30/2024 12:06:53 08/25/20 24 08/30/2024 DRUG SCREE N 10, SCR W/CON F,UR opiate class ia Negati ve NG/mL cutoff :100 Not Available [facility] [place] [place] [facility] [address] [place], [address], 08/30/2024 12:06:53 08/25/20 24 08/30/2024 DRUG SCREE N 10, SCR W/CON F,UR oxycodone class ia Negati ve NG/mL cutoff :100 Not Available [facility] [place] [place] [facility] [address] [place], [address], 08/30/2024 12:06:53 08/25/20 24 08/30/2024 DRUG SCREE N 10, SCR W/CON F,UR methadone ia Negati ve NG/mL cutoff :100 Not Available [facility] ([facility] [place] [place] [facility] [address] [place], [address], 08/30/2024 12:06:53 08/25/20 24 08/30/2024 DRUG SCREE N 10, SCR W/CON F,UR fentanyl ia Negati ve NG/mL cutoff :2.0 Not Available [facility] ([facility] [place] [place] [facility] [address] [place], [address], 08/30/2024 12:06:53 08/25/20 24 08/30/2024 BENZO DIAZE PINES , MS, UR RFX benzodiazepi cam +POSIT REAL+ Not Available [facility] ([facility] [place] [place] [facility] [address] [place], [address], 08/30/2024 12:06:54 08/25/20 24 08/30/2024 BENZO DIAZE PINES , MS, UR RFX diazepam Not Detect ed NG/mg _crea t Not Available [facility] ([facility] [place] [place] [facility] [address] [place] [address], [address], 08/30/2024 12:06:54 08/25/20 24 08/30/2024 BENZO DIAZE PINES , MS, UR RFX desmethyldia zepam Not Detect ed NG/mg _crea t Not Available [facility] ([facility] [place] [place] [facility] [address] [facility], [place], [address], 08/30/2024 12:06:54 08/25/20 24 08/30/2024 BENZO DIAZE PINES , MS, UR RFX oxazepam Not Detect ed NG/mg _crea t Not Available [facility] ([facility] [place] [place] [facility] [address] [facility], [place], [address], 08/30/2024 12:06:54 08/25/20 24 08/30/2024 BENZO DIAZE PINES , MS, UR RFX temazepam Not Detect ed NG/mg _crea t Expec maya metab olism of benzo diaze pine class drugs : Paren t Drug Detec maya Metab olite s ----- ----- - ----- ----- ----- ----- Diaze lulu: Desme thyld iazep am, Temaz epam, Oxaze lulu Chlor diaze poxid e: Desme thyld iazep am, Oxaze lulu Clora zepat e: Desme thyld iazep am, Oxaze lulu Halaz epam: Desme thyld iazep am, Oxaze lulu Temaz epam: Oxaze lulu Oxaze lulu: None Not Available [facility] [place] [place] [facility] [address] [facility], [place], [address], 08/30/2024 12:06:54 08/25/20 24 08/30/2024 BENZO DIAZE PINES , MS, UR RFX alprazolam Not Detect ed NG/mg _crea t Not Available [facility] ([facility] [place] [place] [facility] [address] [facility], [place], [address], 08/30/2024 12:06:54 08/25/20 24 08/30/2024 BENZO DIAZE PINES , MS, UR RFX alpha-hydrox yalprazolam Not Detect ed NG/mg _crea t Not Available [facility] ([facility] [place] [place] [facility] [address] [facility], [place], [address], 08/30/2024 12:06:54 08/25/20 24 08/30/2024 BENZO DIAZE PINES , MS, UR RFX desalkylflur azepam Not Detect ed NG/mg _crea t Not Available [facility] ([facility] [place] [place] [facility] [address] [facility], [place], [address], 08/30/2024 12:06:54 08/25/20 24 08/30/2024 BENZO DIAZE PINES , MS, UR RFX lorazepam Not Detect ed NG/mg _crea t Not Available [facility] ([facility] [place] [place] [facility] [address] [facility], [place], [address], 08/30/2024 12:06:54 08/25/20 24 08/30/2024 BENZO DIAZE PINES , MS, UR RFX alpha-hydrox ytriazolam Not Detect ed NG/mg _crea t Not Available [facility] ([facility] [place] [place] [facility] [address] [place], [address], 08/30/2024 12:06:54 08/25/20 24 08/30/2024 BENZO DIAZE PINES , MS, UR RFX clonazepam Not Detect ed NG/mg _crea t Not Available [facility] ([facility] [place] [place] [facility] [address] [place], [address], 08/30/2024 12:06:54 08/25/20 24 08/30/2024 BENZO DIAZE PINES , MS, UR RFX 7-aminoclona zepam 21 NG/mg _crea t Not Available [facility] ([facility] [place] [place] [facility] [address] [facility], [place], [address], 08/30/2024 12:06:54 08/25/20 24 08/30/2024 BENZO DIAZE PINES , MS, UR RFX midazolam Not Detect ed NG/mg _crea t Not Available [facility] ([facility] [place] [place] [facility] [address] [facility], [place], [address], 08/30/2024 12:06:54 08/25/20 24 08/30/2024 BENZO DIAZE PINES , MS, UR RFX alpha-hydrox ymidazolam Not Detect ed NG/mg _crea t Not Available [facility] ([facility] [place] [place] [facility] [address] [facility], [place], [address], 08/30/2024 12:06:54 08/25/20 24 08/30/2024 BENZO DIAZE PINES , MS, UR RFX flunitrazepa m Not Detect ed NG/mg _crea t Not Available [facility] ([facility] [place] [place] [facility] [address] [facility], [place], [address], 08/30/2024 12:06:54 08/25/20 24 08/30/2024 BENZO DIAZE PINES , MS, UR RFX desmethylflu nitrazepam Not Detect ed NG/mg _crea t Not Available [facility] ([facility] [place] [place] [facility] [address] [facility], [place], [address], 08/30/2024 12:06:54 08/25/20 24 08/30/2024 CANNA ELAINEOI DS, MS, UR RFX cannabinoids +POSIT REAL+ Not Available [facility] ([facility] [place] [place] [facility] [address] [place], [address], 08/30/2024 12:06:54 08/25/20 24 08/30/2024 CANNA BINOI DS, MS, UR RFX carboxy-THC 114 NG/mg _crea t This test is not inten ded to disti bernardino willoughby en the metab olite s of delta -9-te trahy droca nnabi nol, the predo minan t form of THC in most herba l or marij uana- based produ cts, and delta -8-te trahy droca nnabi nol, a psych oacti ve compo und gener ally synth esize d from other canna binoi ds. Not Available [facility] ([facility] [place] [place] [facility] [address], [place], [address], 08/30/2024 12:06:54 08/25/20 24 08/25/2024 micro album in/cr eatin ine, mass ratio , urine Microalbumin 80 Not Available [address], [address], 08/25/2024 09:19:22 08/25/20 24 08/25/2024 micro album in/cr eatin ine, mass ratio , urine Creatinine 300 Not Available [address], [address], 08/25/2024 09:19:22 08/25/20 24 08/25/2024 micro album in/cr eatin ine, mass ratio , urine Ratio 30-300 Not Available [address], [address], 08/25/2024 09:19:22 08/25/20 24 08/25/2024 HbA1c (hemo globi n A1c), blood HbA1c 6.9 Not Available [address], [address], 08/25/2024 09:19:27 01/28/20 25 01/27/2025 [facility] HbA1C 5.8 normal Not Available [address] [place], [address], 01/27/2025 13:37:29 01/28/20 25 01/27/2025 [facility] potassium 3.9 normal Not Available [address] [place], [address], 01/27/2025 13:37:29 01/28/20 25 01/27/2025 [facility] GFR 67 Not Available [address] , [place], [address], 01/27/2025 13:37:29 07/04/20 24 06/20/2024 LDCT, chest , for lung cance r snow maher No observ ation record ed. [id number], [place], [address], 07/06/2024 14:17:27 07/10/20 24 07/03/2024 nerve condu ction study /EMG, upper extre mity (PROC ) No observ ation record ed. [address] (Med Record) [address], [place], [address], 07/17/2024 08:23:51 07/12/20 24 home sleep study No observ ation record ed. [address] [address] [facility], [place], [address], 07/12/2024 14:08:37 01/11/20 25 XR, thora cic spine , 3 view No observ ation record ed. [address], [place], [address], 01/11/2025 15:55:32 Result Notes None recorded. Problems Name Problem SNOMED Code Status Onset Date Resolution Date Notes Provider Name and Address Organization Details Recorded Time Type 2 diabetes mellitus 38169452 Completed 202301/10/2025 Jojo Rausch NP [address] [place], [address], [employer] 5 12:10:31 Bipolar disorder 12119713 Active 2023 Jojo Rausch NP [address] [place], [address], [facility] [employer] 4 12:51:59 Foot callus 519445500 Completed 202305/31/2024 Jojo Rausch NP [address] [place] [address], [address], [place] [employer] 4 10:49:07 Cerebrov ascular accident 620818924 Completed 202310/06/2023 Occurred about 8 years ago - brainst adrian [place], [employer] DEVELOPER [employer]CH[employer] [address] [place] [address], [address], [place] [employer] 4 11:40:26 Neuropat hy 263517397 Active 2023 Jojo Rausch NP [address] [place] [address], [address], [place] [employer] 4 12:52:09 Type 2 diabetes mellitus without complica tion 759648887 Active 2023 Jojo Rausch NP [address] [place] [address], [address] 8, [employer] 4 12:52:14 Chronic obstruct real pulmonar y disease 18613678 Active 2023 Jojo Rausch NP [address] [place] [address], [address] 8, [employer] 4 12:52:03 Primary insomnia 1416366 Active 2023 Jojo Rausch NP [address] [place] [address], [address] 8, [employer] 4 12:52:11 Insomnia 492795725 Active 2023 Jojo Rausch NP [address] [place] [address], 93349-422 8, [employer] 5 11:41:00 Chalazio n of lower eyelid of left eye 09393205162 9102 Completed 202305/31/2024 Jojo Rausch NP [address] [place] [address], [address] 8, [employer] 10:49:03 Menopaus al symptom 48044035 Active 2023 Jojo Rausch NP [address] [place] [address], [address] 8, [employer] 4 10:49:01 Epidermo id cyst of eyelid Completed 202305/31/2024 Jojo RauschMEY [address] [place] [address], 6[address] 8, [employer] 10:48:58 Colorect al cancer detected by DNA-base d stool screenin g 533621821 Active 2023 Jojo RauschEMY [address] [place] [address], 745[address] 8, [employer] 12:19:01 Mixed hyperlip idemia 178821219 Active 2023 Jojo Rausch NP [address] [place] [address], 703[address]-130 8, [employer] 12:18:57 Smoker 54504730 Active 2023 Jojo Rausch NP [address] [place] [address], 524[address]494 8, [employer] 12:18:53 Snoring 36408198 Active 2023 Jojo Rausch NP [address] [place] [address], 79477-277 8, [employer] 12:18:52 Dyspnea 098449605 Active 2023 Jojo Rausch NP [address] [place] [address], 80[address]589 8, [employer] 12:18:59 Numbness of hand 051108574 Active 2023 Jojo Rausch NP [address] [place] [address], 813[address]949 8, [employer] 12:18:54 Abscess of skin and/or subcutan eous tissue 80374983 Completed 202306/28/2024 Jojo Rausch NP [address] [place] [address], [address] 8, [employer] 12:14:57 Anxiety 89576483 Active 2023 Jojo Rausch NP [address] [place] [address], [address]74-757 8, [employer] 12:19:12 Morbid obesity 888739739 Active 2023 Jojo Rausch NP [address] [place] [address], 67488-319 8, [employer] 12:15:05 Obesity 912590247 Completed 202306/28/2024 Jojo Rausch NP [address] [place] [address], 485[address] 8, [employer] 12:15:08 Depressi ve disorder 58566929 Completed 202301/10/2025 Jojo Rausch NP [address] [place] [address], 55[address]194 8, [employer] 11:29:45 Median nerve entrapme nt 828834379 Active 2023 Jojo Rausch NP [address] [place] [address], 20[address] 8, [employer] 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 5 11:29:50 Median nerve entrapme nt 918896722 Completed 202301/10/2025 Jojo Rausch NP [address] [place] [address], 630[address] 8, [employer] 5 11:29:47 Obstruct real sleep apnea syndrome 14656140 Active 2023 Jojo Rausch NP [address] [place] [address], 45[address]693 8, [employer] 5 11:29:55 Acute exacerba tion of chronic obstruct real pulmonar y disease 719026910 Completed 202301/10/2025 Jojo Rausch NP [address] [place] [address], 22312[address]659 8, [employer] 11:29:36 Nicotine dependen ce 14102937 Active 2023 Jojo Rausch NP [address] [place] [address], 205[address]636 8, [employer] 11:29:52 Urine microalb umin detected 421619839 Completed 202301/10/2025 Jojo Rausch NP [address] [place] [address], 06[address]295 8, [employer] 11:30:28 Acute thoracic back pain 242470893 Active 2024 Jojo Rausch NP [address] [place] [address], 85286-263 8, [employer] 11:29:39 Nightmar es 739548306 Active 2024 Jojo Rausch NP [address] [place] [address], 82547-990 8, [employer] 11:42:36 Type 2 diabetes mellitus 01167292 Active 2024 Jojo Rausch NP [address] [place] [address], 99902[address] 8, [employer] 12:10:31 Hyperten sive disorder 91519978 Active 2024 Jojo Rausch NP [address] [place] [address], 24358-459 8, [employer] 16:21:20 Problem Notes None recorded. Procedures Surgical History Date Name Laterality Status Provider Name and Address Organization Details Recorded Time 05/31/20 24 I&D completed Jojo Rausch NP [address] [place] [address], [address], [employer] 05/31/2024 12:16:02 02/28/20 24 Date of Last Pap Smear completed JOJO [employer] [employer] 02/28/2024 10:46:01 02/21/20 24 Most Recent Mammogram completed JOJO [employer] 02/28/2024 10:46:41 Hernia Repair completed [employer] 10/06/2023 10:58:42 Cholecystectomy completed PJ [employer]. 10/06/2023 11:12:44 Imaging Results None recorded. Procedure Notes None recorded. Medical Equipment None Reported. Allergies Allergen ID Allergen Name Allergen Category Reaction Reaction Severity Criticality Documentation Date Start Date Code Code System Note Provider Name and Address Organization Details Recorded Time 33460 Phenergan medicatio n itching rash Not available Not available Not available 10/06/2023 50063 8 [facility] [employer] 11:05:15 Medications Name Sig Start Date Stop Date Status Note LastModified by Organization Details LastModified Time atorvastati n 40 mg tablet TAKE 1 TABLET BY MOUTH ONCE DAILY AT BEDTIME FOR CHOLESTER OL active Not Available Not Available No t Available atorvastati n 80 mg tablet TAKE 1 TABLET BY MOUTH ONCE DAILY active Not Available Not Available No t Available oxcarbazepi ne 150 mg tablet Take 1 tablet by mouth twice daily 2024 active Not Available Not Available Not Avai lable doxycycline hyclate 100 mg capsule TAKE 1 CAPSULE BY MOUTH TWICE DAILY 06/28 completed Not Available Not Available Not Available quetiapine 300 mg tablet TAKE 1 TABLET BY MOUTH ONCE DAILY 01/10 completed Not Available Not Available Not Available albuterol sulfate 2.5 mg/3 mL (0.083 %) solution for nebulizatio n USE 1 VIAL IN NEBULIZER THREE TIMES DAILY NEEDED FOR WHEEZING FOR SHORTNESS OF BREATH active Not Available Not Available No t Available trazodone 50 mg tablet Take 1-2 tablets every night at bedtime for sleep 2024 active Not Available Not Available Not Avai lable azithromyci n 250 mg tablet TAKE 2 TABLETS BY MOUTH ON DAY 1, AND THEN TAKE 1 TABLET BY MOUTH ONCE A DAY ON DAY 2 THROUGH DAY 5 07/31 completed Not Available Not Available Not Available aspirin 325 mg tablet Take 1 tablet every day by oral route. active Not Available Not Available No t Available prazosin 1 mg capsule Take 1 capsule every day by oral route at bedtime. 2024 active Not Available Not Available Not Avai lable prednisone 20 mg tablet TAKE 2 TABLETS BY MOUTH ONCE DAILY FOR 5 DAYS 07/31 completed Not Available Not Available Not Available sertraline 100 mg tablet Take 1 tablet(s) twice a day by oral route. 01/26 completed Not Available Not Available Not Available clonazepam 1 mg tablet TAKE 1 TABLET BY MOUTH EVERY 8 HOURS NEEDED FOR ANXIETY 2024 active Not Available Not Available Not Avai lable oxcarbazepi ne 300 mg tablet Take 1 tablet by mouth twice daily 2024 active Not Available Not Available Not Avai lable chlorthalid one 25 mg tablet Take 1 tablet(s) every day by oral route. 01/29 completed Not Available Not Available Not Available quetiapine 100 mg tablet TAKE 1 TO 3 TABLETS BY MOUTH ONCE DAILY AT NIGHT AT BEDTIME FOR SLEEP 07/31 completed Not Available Not Available Not Available amitriptyli ne 50 mg tablet Take 2 tablets every day by oral route at bedtime. 01/11 completed Not Available Not Available Not Available trazodone 100 mg tablet TAKE 1 TABLET BY MOUTH ONCE DAILY AT BEDTIME FOR SLEEP active Not Available Not Available No t Available OneTouch Ultra Test strips USE DIRECTED TO CHECK GLUCOSE UP TO THREE TIMES DAILY active Not Available Not Available No t Available metformin 1,000 mg tablet TAKE 1 TABLET BY MOUTH TWICE DAILY active Not Available Not Available No t Available lisinopril 10 mg tablet Take 1 tablet(s) every day by oral route. 01/11 completed Not Available Not Available Not Available Advair Diskus 250 mcg-50 mcg/dose powder for inhalation Inhale 1 puff every day by inhalatio n route. 01/11 completed Not Available Not Available Not Available nicotine 21 mg/24 hr daily transdermal patch APPLY 1 PATCH TOPICALLY ONCE DAILY active Not Available Not Available No t Available estradiol 2 mg tablet TAKE 1 TABLET BY MOUTH ONCE DAILY 05/31 completed Not Available Not Available Not Available diclofenac sodium 75 mg tablet,messi yed release TAKE 1 TABLET BY MOUTH TWICE DAILY active Not Available Not Available No t Available lisinopril 5 mg tablet Take 1 tablet every day by oral route. 01/29 completed Not Available Not Available Not Available zolpidem 5 mg tablet 08/25 completed Not Available Not Available Not Available zolpidem 10 mg tablet TAKE 1 TABLET BY MOUTH ONCE DAILY FOR SLEEP 06/28 completed Not Available Not Available Not Available albuterol sulfate HFA 90 mcg/actuati on aerosol inhaler Inhale by inhalatio n route for 17 days. 2024 active Not Available Not Available Not Avai lable lisinopril 2.5 mg tablet TAKE 1 TABLET BY MOUTH ONCE DAILY active Not Available Not Available No t Available glipizide 5 mg tablet Take 1 tablet twice a day by oral route. 2024 active Not Available Not Available Not Avai lable progesteron e micronized 100 mg capsule TAKE 1 CAPSULE BY MOUTH ONCE DAILY IN THE EVENING FOR 12 DAYS 05/31 completed Not Available Not Available Not Available pregabalin 25 mg capsule TAKE 1 CAPSULE BY MOUTH TWICE DAILY FOR 3 DAYS THEN INCREASE TO 1 CAPSULE THREE TIMES DAILY LONG TOELRATIN G 08/25 completed Not Available Not Available Not Available pregabalin 50 mg capsule Take 1 capsule 3 times a day by oral route. 08/25 completed Not Available Not Available Not Available pregabalin 75 mg capsule TAKE 1 CAPSULE BY MOUTH THREE TIMES DAILY active Not Available Not Available No t Available OneTouch Verio test strips active Not Available Not Available Not Available Vraylar 4.5 mg capsule TAKE 1 CAPSULE BY MOUTH ONCE DAILY active Not Available Not Available No t Available Vraylar 3 mg capsule Take 1 capsule every day by oral route. 08/25 completed Not Available Not Available Not Available Trelegy Ellipta 100 mcg-62.5 mcg-25 mcg powder for inhalation 07/31 completed Not Available Not Available Not Available OneTouch Ultra2 Meter active Not Available Not Available Not Available OneTouch Delica Plus Lancet 30 gauge USE 1 LANCET THREE TIMES DAILY TO CHECK GLUCOSE active Not Available Not Available No t Available Breztri Aerosphere 160 mcg-9mcg-4. 8mcg/actuat ion HFA aerosol inhaler Inhale 2 puffs by mouth twice daily 2024 active Not Available Not Available Not Avai alisa Almendarez Ellipta 200 mcg-62.5 mcg-25 mcg powder for inhalation Inhale 1 puff every day by inhalatio n route. 08/25 completed Not Available Not Available Not Available Ozempic 1 mg/dose (4 mg/3 mL) subcutaneou s pen injector Inject 1 mg every week by subcutane ous route, for diabetes. 08/25 completed Not Available Not Available Not Available Ozempic 2 mg/dose (8 mg/3 mL) subcutaneou s pen injector INJECT 2 MG UNDER THE SKIN ONCE WEEKLY active Not Available Not Available No t Available Ozempic 0.25 mg or 0.5 mg (2 mg/3 mL) subcutaneou s pen injector INJECT 0.5MG EVERY WEEK BY SUBCUTANE OUS ROUTE FOR DIABETES 08/02 completed Not Available Not Available Not Available Hemiclor 12.5 mg tablet TAKE 1 TABLET BY MOUTH ONCE DAILY active Not Available Not Available No t Available Vitals Date Recorded Body height Body mass index (BMI) Body weight Heart rate Oxygen saturation Oxygen saturation in Arterial blood by Pulse oximetry Systolic blood pressure Diastolic blood pressure Provider Name and Address Organization Details Last Updated DateTime 5 160.02 cm 40.3 kg/m2 688652. 87 g 99 /min 90 % 90 % 101 mm[Hg] 71 mm[Hg] [employer] 5 11:20:14 Date Recorded Body height Body mass index (BMI) Body weight Heart rate Oxygen saturation Oxygen saturation in Arterial blood by Pulse oximetry Systolic blood pressure Diastolic blood pressure Provider Name and Address Organization Details Last Updated DateTime 4 160.02 cm 45 kg/m2 484564. 86 g 97 /min 87 % 87 % 131 mm[Hg] 83 mm[Hg] [employer] 4 11:43:20 Date Recorded Body height Body mass index (BMI) Body weight Body temperature Heart rate Oxygen saturation Oxygen saturation in Arterial blood by Pulse oximetry Systolic blood pressure Diastolic blood pressure Provider Name and Address Organization Details Last Updated DateTime 4 160.02 cm 44.6 kg/m2 721886. 28 g 98.1 [degF] 96 /min 88 % 88 % 106 mm[Hg] 72 mm[Hg] Collette jeffries [employer] 4 13:15:18 Date Recorded Body height Body mass index (BMI) Body weight Heart rate Oxygen saturation Oxygen saturation in Arterial blood by Pulse oximetry Systolic blood pressure Diastolic blood pressure Provider Name and Address Organization Details Last Updated DateTime 4 160.02 cm 42.9 kg/m2 853240. 75 g 96 /min 88 % 88 % 105 mm[Hg] 73 mm[Hg] Natividad Miller [employer] 4 09:18:01 Social History Question Answer Notes LastModified by Organizat ion Details LastModified Time Tobacco Smoking Status Current Every Day Smoker PJ [facility] [employer]. 10/06/2023 10:58:41 Do You Have An Advance Directive? No [email or web address] Information not available 10/06/2023 Is Your Home Air Conditioned? No [email or web address] Information not available 10/06/2023 Do You Wear A Helmet When Biking? No [email or web address] Information not available 10/06/2023 Are You Blind Or Do You Have Difficulty Seeing? No [email or web address] Information not available 10/06/2023 What Is Your Level Of Caffeine Consumption? Occasional [email or web address] Information not available 10/06/2023 In The 14 Days Before Symptom Onset, Have You Had Close Contact With A Laboratory-confir med COVID-19 While That Case Was Ill? No [email or web address] Information not available 05/31/2024 In The 14 Days Before Symptom Onset, Have You Had Close Contact With A Person Who Is Under Investigation For COVID-19 While That Person Was Ill? No [email or web address] Information not available 05/31/2024 Have You Been To An Area Known To Be High Risk For COVID-19? No Information not available 10/06/2023 Are You Deaf Or Do You Have Serious Difficulty Hearing? No [email or web address] Information not available 10/06/2023 What Type Of Diet Are You Following? REGULAR [email or web address] Information not available 10/06/2023 How Many Days Of Moderate To Strenuous Exercise, Like A Brisk Walk, Did You Do In The Last 7 Days? 1 [email or web address] Information not available 10/06/2023 Have There Been Any Changes To Your Family Or Social Situation? Yes [email or web address] Information no t available 10/06/2023 When Did You Quit Smoking? 1-5yearssincel jaraderick Information not available 07/31/2024 Are There Any Guns Present In Your Home? No Information not available 10/06/2023 Which Of Your Hands Is Dominant? Left [email or web address] Information not available 10/06/2023 What Is Your Home Situation? Other [email or web address] Information not available 10/06/2023 Do You Have A Medical Power Of Regional Cra? No [email or web address] Information not available 10/06/2023 What Was The Date Of Your Most Recent Tobacco Screening? 01/10/2025 [email or web address] Information not available 01/10/2025 What Is Your Current Pack Years? 30ormorepackye ars [email or web address] Information not available 10/06/2023 Do You Have Any Pets? Yes [email or web address] Information not available 10/06/2023 Do You Use Protection During Sex? No [email or web address] Information not available 10/06/2023 What Is Your Relationship Status? [email or web address] Information not available 10/06/2023 Have You Repeated Any Grades? No [email or web address] Information not available 10/06/2023 Do You Use Your Seat Belt Or Car Seat Routinely? Yes [email or web address] Information not available 10/06/2023 Are You Sexually Active? Yes [email or web address] Information not available 10/06/2023 Do You Have Any Siblings? Yes [email or web address] Information not available 10/06/2023 Do You Have Smoke And Carbon Monoxide Detectors In Your Home? No [email or web address] Information not available 10/06/2023 At What Age Did You Start Smoking Tobacco? 12 [email or web address] Information not available 10/06/2023 Are You Passively Exposed To Smoke? No Information no t available 07/31/2024 Are There Any Smokers In Your House? No Information not available 07/31/2024 How Much Tobacco Do You Smoke? 0.5 PPD [email or web address] Information not available 01/12/2024 Do You Participate In Social Media? Yes [email or web address] Information not available 05/31/2024 Do You Use Sunscreen Routinely? No [email or web address] Information not available 10/06/2023 Has Tobacco Cessation Counseling Been Provided? No [email or web address] Information not available 10/06/2023 How Many Years Have You Smoked Tobacco? 41 Information not available 10/06/2023 Have You Recently Traveled Abroad? No [email or web address] Information not available 10/06/2023 Do You Have Difficulty Walking Or Climbing Stairs? Yes [email or web address] Information not available 10/06/2023 Do You Have Any Dietary Restrictions? No [email or web address] Information not available 05/31/2024 Sex: Female Functional Status Question Answer Note LastModified by Organizat ion Details LastModified Time Do you use any illicit or recreational drugs? No [email or web address] Information not available 10/06/2023 Do you or have you ever used any other forms of tobacco or nicotine? No [email or web address] Information not available 10/06/2023 Are you currently employed? No [email or web address] Information not available 10/06/2023 Do you have transportation difficulties? No [email or web address] Information not available 05/31/2024 Are you able to walk? YESWOREST [email or web address] Information not available 10/06/2023 Do you have difficulty doing errands alone? Yes [email or web address] Information not available 10/06/2023 Are you able to care for yourself? Yes [email or web address] Information n ot available 10/06/2023 Do you have difficulty dressing or bathing? No [email or web address] Information not available 10/06/2023 What is your exercise level? Occasional [email or web address] Information not available 10/06/2023 Mental Status Question Answer Note LastModified by Organizat ion Details LastModified Time Do you feel stressed (tense, restless, nervous, or anxious, or unable to sleep at night)? [id number] [email or web address] Information not available 05/31/2024 Do you have difficulty concentrating, remembering or making decisions? Yes [email or web address] Information no t available 10/06/2023 Are you or have you been involved with bullying? No [email or web address] Information not available 10/06/2023 Family History Relationship Description Onset Age of this Age Resolved Age Notes LastModified by Organization Details LastModified Time Mother Hypercholest erolemia [email or web address] Not available 02/2024 10:58:40 Mother Hypertensive disorder [email or web address] Not available 02/2024 10:58:40 Sister Asthma [email or web address] Not availab le 10/06/2023 10:58:40 Sister Hypertensive disorder [email or web address] Not available 02/2024 10:58:40 Father Harmful pattern of use of alcohol [email or web address] Not available 02/2024 10:58:40 Father Heart disease [email or web address] Not available 02/2024 10:58:40 Medical History Condition Response Diabetes Y Anxiety Disorder Y Obesity Y Hospitalizations N Emergency room visit since last appointm ent. N Stroke Y Depression Y COPD Y Asthma Y High Cholesterol Y Hypertension Y Gynecological History Statement/Question Response Abnormal Pap N Sexually Active? Y Menses Monthly No HPV Vaccine N Date of Last Pap Smear 02/28/2024 Current Control Method IUD Most Recent Mammogram 02/21/2024 LMP Unknown Age at First Child 23 Obstetrics History GPAL:G 3 P 3 0 0 3 Type Value Full Term 3 Living 3 Total 3 Immunizations Vaccine Type Date Status Note Provider Nam e and Address Organization Details Recorded Time zoster recombinant 4 completed Jojo Rausch NP [address] [place] [address], [address], [employer] 05/31/2024 12:18:11 Influenza, split virus, trivalent, PF 4 yoav Rausch NP [address] [place] [address], [address], [employer] 05/31/2024 12:08:01 zoster recombinant 4 yoav Rausch NP [address] [place], [address], [employer] 08/03/2024 08:42:37 Tdap 4 yoav Rausch NP [address] [place], [address], [employer] 08/25/2024 12:32:13 Pneumococcal conjugate PCV15, polysaccharide THM519 conjugate, adjuvant, PF 4 completed Jojo Rausch NP [address] [place], [address], [facility] [employer] 08/25/2024 12:32:13 Influenza, split virus, quadrivalent, preservative 7 completed PJ [facility] [employer] 10/06/2023 11:04:36 Past Encounters Encounter ID Performer Location Encounter Start Date Encounter Closed Date Diagnosis/Indication Diagnosis SNOMED-CT Code Diagnosis ICD10 Code Diagnosis Note [id number] [place] [address] [address] 10/06/2023 10:50:52 10/06/2023 12:52:29 Type 2 diabetes mellitus without complication 528559523 E11.9 Chronic ob structive pulmonary disease 00840387 J44.9 Hypertensive disorder 38 561999 I10 Depressive disorder 3548 9007 F32.A Mixed hyperlipidemia 267 958271 E78.2 Bipolar disorder 1150929 4 F31.9 Foot callus 052983454 L8 4 Long-term drug therapy 408793967 Z79.899 Neuropathy 681238391 G62 .9 Counseling 665098596 Z71 .9 [id number] [place] [address] [address] 01/12/2024 10:30:27 01/12/2024 12:10:27 Type 2 diabetes mellitus without complication 641635310 E11.9 Insomnia 430038954 G47.0 0 Chronic ob structive pulmonary disease 46426001 J44.9 IUD check 242555758 Z30. 131 [id number] Abhishek Metzger II, MD [facility] [address] [place] [address],[place] [address] 02/28/2024 10:27:36 02/28/2024 11:19:53 Removal of intrauterine contraceptive device done 9893538988 35789 Z30.432 Screening for malignant neoplasm of cervix 655906256 Z12.4 Screening for malignant neoplasm of colon 276520361 Z12.11 Menopausal symptom 67280 002 N95.1 [id number] Jojo Rausch NP [place] [id number] 0 02/23/2024 10:49:42 02/23/2024 13:01:14 Chalazion of lower eyelid of left eye 2147282141 38141 H00.15 Chronic ob structive pulmonary disease 64801951 J44.9 [id number] Abhishek Metzger II, MD [address],[place] [address] 03/20/2024 13:36:18 03/20/2024 13:48:30 Finding related to health literacy 620080742 Z55.6 Needs assi stance with community resources 5156158504 9102 Z76.89 [id number] Jojo Rausch NP [place] [id number] 05/31/2024 09:59:54 05/31/2024 13:47:36 Type 2 diabetes mellitus without complication 912980055 E11.9 Chronic ob structive pulmonary disease 97375113 J44.9 Neuropathy 353660088 G62 .9 Colorectal cancer detected by DNA-based stool screening 262193881 R19.5 Insomnia 660067577 G47.0 0 Bipolar disorder 9619582 4 F31.9 Mixed hyperlipidemia 267 000855 E78.2 Smoker 11023246 F17.200 Screening for malignant neoplasm of respiratory tract 888212273 Z12.2 Hepatitis C screening 41 9153406 Z11.59 HIV screening 450222938 Z11.4 Snoring 07133503 R06.83 Dyspnea 313398813 R06.00 Numbness of hand 7903608 04 R20.0 Abscess of skin and/or subcutaneous tissue 64820714 L02.91 Active or passive immunization 374884899 Z23 Anxiety 71325040 F41.9 Body mass index 40+ - severely obese 026715576 Z68.42 [id number] Jojo Rausch NP [place] [id number] 0 06/28/2024 11:04:23 06/28/2024 13:09:20 Morbid obesity 868415229 E66.01 Primary insomnia 9159673 F51.01 Bipolar disorder 3297635 4 F31.9 Anxiety 37484090 F41.9 Depressive disorder 3548 9007 F33.9 Type 2 román betes mellitus without complication 077208298 E11.9 Hepatitis C antibody detected 153637392 Z86.19 [id number] Jojo Rausch NP [place] [address] 0 07/12/2024 10:59:01 07/12/2024 12:41:39 Obstructive sleep apnea syndrome 80521523 G47.33 Primary insomnia 7824182 F51.01 Median ner ve entrapment 399424690 G56.02 Mixed sens ory-motor polyneuropathy 1779773 G62.89 Acute exac erbation of chronic obstructive pulmonary disease 736510492 J44.1 Chronic ob structive pulmonary disease 05895937 J44.9 Dependence on supplemental oxygen 3891492465 07 Z99.81 Bipolar disorder 3853832 4 F31.9 Smoker 07790982 F17.522 [id number] Jojo [place] [address] 07/31/2024 13:03:28 07/31/2024 13:57:33 Dependence on supplemental oxygen [id number] 07 Z99.81 Chronic ob structive pulmonary disease 37684068 J44.9 Bipolar disorder 9252381 4 F31.9 Depressive disorder 3548 9007 F33.9 Active or passive immunization 265583717 Z23 Nicotine dependence 5629 4008 F17.200 Type 2 román betes mellitus without complication 366562419 E11.9 Mixed sens ory-motor polyneuropathy 8756752 G62.89 [id number] Jojo Rausch NP [place] [address] 0 08/25/2024 09:06:39 08/25/2024 10:12:52 Chronic obstructive pulmonary disease 47720835 J44.9 Type 2 román betes mellitus without complication 678048727 E11.9 Mixed sens ory-motor polyneuropathy 6170454 G62.89 Medication monitoring 39 4950917 Z51.81 Active or passive immunization 787981064 Z23 Dependence on supplemental oxygen 1174667095 07 Z99.81 Insomnia 497389843 G47.0 0 Bipolar disorder 4024345 4 F31.9 Urine micr oalbumin detected 100259105 R80.9 [id number] [place] [address] 01/10/2025 11:03:28 01/10/2025 12:40:04 Acute thoracic back pain 140778495 M54.6 Chronic ob structive pulmonary disease 86690507 J44.9 Type 2 román betes mellitus 36882061 E11.29 R80.9 Mixed hyperlipidemia 267 892172 E78.2 Bipolar disorder 8804715 4 F31.9 Type 2 román betes mellitus without complication 302840958 E11.9 Obstructiv e sleep apnea syndrome 15934436 G47.33 Insomnia 364255759 G47.0 0 Nightmares 238470194 F51 .5 Hypertensive disorder 38 556857 I10 Nicotine dependence 5629 4008 F17.200 Therapeuti c drug monitoring assay 63840355 Z51.81 [id number] Jojo Rausch NP [place] [id number] 01/26/2025 14:19:45 01/26/2025 14:52:55 Nightmares 885868352 F51.5 Insomnia 874437972 G47.0 0 Hypertensive disorder 38 926590 I10 Type 2 román betes mellitus 25515791 E11.9 E11.29 R80.9 Mixed hyperlipidemia 267 090429 E78.2 Anxiety 63866772 F41.9 Health Concerns Section Related Observation LastModified by Organization Detai ls LastModified Time None Recorded Concern Status LastModified by Organization Details LastModified Time None Recorded Advance Directives Directive N: Payers Insurance Date Sequence Insurance Name Policy Number Policy Elmore Covered Member ID Elmore Member ID Guarantor Name 07/17/2024 1 UNSPECIFIED REMIT PAYOR Domitila Player 10/06/2023 SLIDING FEE SCHEDULE - DISCOUNT Domitila Player 10/06/2023 SLIDING FEE SCHEDULE - DISCOUNT Domitila Player 10/06/2023 SLIDING FEE SCHEDULE - DISCOUNT Domitila Player 12/13/2024 SLIDING FEE SCHEDULE - DISCOUNT Domitila Player 01/05/2024 1 *SELF PAY* Ra prabhakar Player 02/11/2024 1 [facility] (MEDICAID REPLACEMENT - HMO) LADAN Caldwell Player [id number] Domitila Player 02/25/2024 1 *SELF PAY* Ra prabhakar Player 02/29/2024 1 *SELF PAY* Ra prabhakar Player 01/28/2025 1 [facility] (MEDICAID REPLACEMENT - HMO) LADAN Caldwell Player [id number] Domitila Player 02/25/2024 1 [facility] (MEDICAID REPLACEMENT - HMO) Domitila Caldwell Player [id number] Domitila Player Notes Date Note Type Note Provider Name and Address Organization Details Recorded Time 07/12/2024 text/html Patient presents for follow up on insomnia. She is sleeping much better -getting 5 hours sleep per night. She is requesting results of her sleep study. She does have mild sleep apnea. She does not want a CPAP -states she cannot wear a mask, but would be agreeable to ENT consult or oral appliance.Neuropat hic pain as well - diagnosed with nerve entrapment via EMG. Would like something for nerve pain to left arm. She sees ortho next month. She has tried gabapentin in the past and it did not help her pain.Sleep has helped with biopolar. She states her mood is stable currently.Producti ve cough x a few days. Increased shortness of breath, especially with exertion. Her 02 sats have been decreased for the last several visits. She has not used portable 02 in the past. She has definitely been more short of breath than her normal for the past few days. She is using albuterol inhaler/nebulzier several times per day. Jojo Rausch, MEY [address] [place], [address], [facility] [employer] 07/12/2024 14:17:44 07/31/2024 text/html Patient presents for follow up on COPD, bipolar disorder and insomnia. She is scheduled with psych provider next month for evaluation. Her PHQ remains elevated today. She states she still feels very depressed. She is sleeping much better though. She continues to deny SI ever.States she is feeling better at home when she wears the oxygen. States coughing and wheezing is the same even after completing antibiotics. She needs a portable O2 machine sent to [facility] - today her 02 is decreased on RA, even after rest.Lyrica helped for a day or two but now does not seem to help much with neuropathic pain of left arm. Jojo Rausch NP [address] [place], [address], [employer] 08/03/2024 08:52:03 08/25/2024 text/html Patient presents for follow up on COPD, diabetes and bipolar disorder.Diabetes - A1C improved from 7.8 to 6.9 today.COPD / 02 dependence - using albuterol inhaler 5 times per day. Pulmonology has to be rescheduled d/t her 's work schedule, but she plans to go. She states breztri seemed to control her symptoms a little better than the trelegy is. She is out of samples previously provided. She did get portable O2 concentrator but she did not bring it today and was hypoxic on arrival but asymptomatic and is not in any distress.Obesity - has lost 26 lbs.Lyrica does seem to help some with her neuropathic pain but she continues to have numbness and discomfort in her left arm especially. Jojo Rausch NP [address] [place], [address], [employer] 08/25/2024 12:40:21 01/10/2025 text/html Pt. presents for follow up on multiple concerns:Anxiety / Bipolar disorder/insomnia- Still not sleeping serojose manuell is not working at all anymore. She is awakened from sleep multiple times throughout the night. [employer] works when she takes it. She does have some nightmares. She has been scheduled/r/s with multiple times. Encouraged her to keep appt scheduled.COPD- using oxygen at home. Continues Breztri. Pulmonology told her she needed sleep and that would help her breathing. She does not have a follow up. Using albuterol inhaler regularly (multiple times daily). She did have sleep study / sleep apnea +, but was unwilling to try cpap, she is now willing to try.Diabetes- Sugar is running 100-110 fasting. She is taking medications as prescribed. No episodes of hypoglycemia.Back- fell two weeks ago going down the steps. She tripped on her dress and fell backwards onto her back in the middle of her back on the steps. Steps were concrete. She has just been pushing through and taking ibuprofen but it is not helping. Limited ROM. No n/t to back.Left arm- had steroid shot yesterday for neuropathy of left arm. She has been referred to surgeon in [place] for elbow surgery. She is also going to start PT.She has had a few episodes of dizziness. Her blood pressure has been consistently low at last several visits. Jojo Rausch NP [address] [place], [address], [employer] 01/11/2025 16:23:42 01/26/2025 text/html TeleHealth:Tenzin jackson 's identity has been confirmed with name and date of .Patient/fami ly member provided verbal consent for TeleHealth services.Patient and provider are within the [facility], benefits and alternatives of care provided via telecare were discussed; they wish to proceed.History details were provided by the patient/caregiver. Patient presents for follow up on insomnia. She states she is not having nightmares at all now and is sleeping much better.She was approved for disability yesterday and that has relieved a lot of her stress.BP 86/61 yesterday and at home 80's systolic. We previously dropped her lisinopril to 5 mg from 10 mg but she still has some low blood pressure and dizziness upon standing. Jojo Rausch NP [address] [place], [address], [employer] 01/29/2025 12:12:44 OBGyn Episode No OBEpisode recorded.
--- OUTSIDE RECORDS SUMMARY | 2025-02-08 13:45 | XMS_ITS | Clinical Summary ---
Author Organization [facility] Address [address] [facility] [address] Phone Care Team Providers Care Balance Bridge Assembler Name Role Phone Unavailable Primary Care Provider Unavailabl e Allergies Active Allergy Reactions Criticality Noted Date Comments Promethazine Other (See Comments) 06/14/2014 Caused shakes, didn't feel right. Medications Aspirin 325 mg Oral Tablet, Delayed Release (E.C.) Take 1 Tab by mouth daily. 09/11/19 15 Active albuterol (VENTOLIN HFA) 90 mcg/actuation Inhl HFA Aerosol InhalerIndications :Reactive airway disease with acute exacerbation, unspecified asthma severity, unspecified whether persistent Inhale 2 Puffs into the lungs every 4 hours as needed. 18 g 3 01/06/20 18 Active OXcarbazepine (TRILEPTAL) 150 mg Oral TabletIndications: Bipolar affective disorder, currently depressed, moderate (HCC) Take 1 Tab by mouth 2 times daily. 60 Tab 5 01/28/20 18 Active zolpidem (AMBIEN) 10 mg Oral TabletIndications: Insomnia, persistent Take 1 Tab by mouth nightly as needed. at bedtime Patient needs an appointment 30 Tab 5 02/29/20 18 Active albuterol (VENTOLIN HFA) 90 mcg/actuation Inhl HFA Aerosol Inhaler Inhale 2 Puffs into the lungs every 4 hours as needed. 2 Inhaler 04/12/20 18 Active ALPRAZolam (XANAX) 2 mg Oral TabletIndications: Bipolar affective disorder, currently depressed, moderate (HCC) Take 1 Tab by mouth 3 times daily as needed. 90 Tab 06/22/20 18 Active QUEtiapine XR (SEROQUEL) 300 mg Oral Tablet Sustained Release 24 hrIndications:Othe r hyperlipidemia TAKE 1 TABLET BY MOUTH ONCE DAILY 30 Tab 07/25/20 18 Active sertraline (ZOLOFT) 50 mg Oral TabletIndications: Bipolar affective disorder, currently depressed, moderate (HCC) TAKE 1 TABLET BY MOUTH ONCE DAILY 30 Tab 07/25/20 18 Active atorvastatin (LIPITOR) 20 mg Oral TabletIndications: Hyperlipidemia, unspecified hyperlipidemia type TAKE 1 TABLET BY MOUTH ONCE DAILY 30 Tab 07/25/20 18 Active Active Problems Patient Care Coordination No te Formatting of this note migh t be different from the original. Controlled Substance Protocol Completed: A. Informed Consent Statement signed (once) B. Controlled Substance Agreement signed (once) C. Comprehensive Urine Drug Screen (yearly) 02/17/2017 D. Abel report completed (yearly) 01/27/2018 E. Screening tool for addiction (SOAPP) (yearly) Problem Noted Date Diagnosed Date Insomnia, persistent 04/13/2016 Other hyperlipidemia 12/20/2014 Cerebral infarction 09/10/2014 Obesity 06/14/2014 HTN (hypertension) Nicotine addiction Bipolar disorder PTSD (post-traumatic stress disorder) Agoraphobia Paresthesias Ventral hernia without obstruction or gangrene Immunizations Immunization Administration Dates Next Due Influenza Vaccine Quadrivalent 06/02/2017 Surgical History Surgery Date Site/Laterality Comments CHOLECYSTECTOMY, LAPAROSCOPIC UMBILICAL HERNIA REPAIR 04/23/2016 N/A ventral HERNIA REPAIR WITH MESH ; Surgeon: Issa Schaffer MD; Location: [facility] OR; Service: General Medical devices from this surgery are in the Medical Devices section. Medical History Medical History Date Comments HTN (hypertension) Nicotine addiction Bipolar disorder (HCC) PTSD (post-traumatic stress disorder) Agoraphobia Stroke (HCC) 08/2014 mild stroke COPD (chronic obstructive pulmonary disease) (HC C) Hyperlipidemia Bladder problem Urinary incontinence Family History Medical History Relation Name Comments Heart Disease Father High Blood Pressure Mother High Cholesterol Mother Heart Disease Paternal Grandfather Diabetes Sister 1 Relation Name Status Comments Father Mother Alive Paternal Grandfather Sister 1 Alive Sister 2 Alive Social History Tobacco Use Types Packs/Day Years Used Date Smoking Tobacco: Every Day Cigarettes 1 25 Smokeless Tobacco: Never Tobacco Cessation:Ready to Q uit: No; Counseling Given: Yes Alcohol Use Standard Drinks/Week Comments No 0 (1 standard drink = 0.6 oz pur e alcohol) Comments No Sex and Gender Information Value Date Recorded Sex Assigned at Not on file Legal Sex Female 12:25 PM EDT Gender Identity Not on file Sexual Orientation Not on file Obstetrics History Last Filed Vital Signs Vital Sign Reading Time Taken Comments Blood Pressure 128/88 01/27/2018 7:58 AM EDT Pulse 102 01/27/2018 7:58 AM EDT Temperature 36.7 C (98.1 F) 05/06/2016 2:19 PM EDT Respiratory Rate 22 01/27/2018 7:58 AM EDT Oxygen Saturation 92% 01/27/2018 7:58 AM EDT Inhaled Oxygen Concentration - - Weight 128.8 kg (284 lb) 01/27/2018 7:58 AM EDT Height 160 cm (5' 3 ) 01/27/2018 7:58 AM EDT Body Mass Index 50.31 01/27/2018 7:58 AM EDT Plan of Treatment Health Maintenance Due Date Last Done Comments Annual Wellness Exam 1972 Microalbuminuria 1979 Diabetic Eye Exam 1987 DTaP/TDaP/Td (1 - Tdap) 1988 Hepatitis B Vaccine (1 of 3 - 19+ 3-dose series) 1988 Cervical Cancer Screening 1990 Pap Smear 1990 HPV/Pap Cotest 1999 Cologuard 2014 Colon Cancer Screening 2014 Colonoscopy 2014 FIT 2014 Sigmoidoscopy 2014 Virtual Colonography 2014 Hemoglobin A1c 12/01/2017 06/02/2017, 09/10/2014 Lipids 06/02/2018 06/02/2017, 09/11/2014 Low Dose Lung Cancer Screening 2019 Zoster (1 of 2) 2019 Pneumococcal Vaccine 50+ (2 of 2 - PCV) 10/13/2019 10/13/2018 COVID-19 Vaccine (1 - 2023-2 5 season) 2024 Influenza Vaccine (Season Ended) 2025 06/02/20 Breast Cancer Screening 02/20/2026 02/21/20 24, 01/25/2015 Meningococcal B Vaccine Aged Out No l onger eligible based on patient's age to complete this topic Goals Goal Patient Goal Type Associated Problems Recent Progress Patient-Stated? Author Blood Pressure < 140/90 Blood Pressure 128/88(2017 7:58 AM EDT) Surekha Batista LPN Maintain a healthy diet, exercise regularly and maintain an ideal body weight General No Gia Siu LPN Stay Tobacco Free Lifestyle No Gia Siu LPN Medical Devices Implanted Type Area Supervisor Word Processing Device Identifier Shelf Expiration Date Model / Serial / Lot Patch Hernia St Ventralex Large [place] With Strap 3.2 (8.0 - [id number] Implanted:Qty: 1 on 04/23/2016 by Issa Schaffer MD at [facility] N/A: Umbilical CR BARD:DAVOL 01/24/2018 [id number] / / [id number] Procedures Procedure Name Priority Date/Time Associated Diagnosis Comments MM MAMMO DIGITAL VENU SCREEN BILAT Routine 02/21/2024 10:47 AM EDT Encounter for screening mammogram for malignant neoplasm of breast LIPID SCREEN Routine 06/02/2017 9:14 AM EDT Screening for lipoid disorders HEMOGLOBIN A1C Routine 06/02/2017 9:14 AM EDT Hyperglycemia from Last 3 Months or Most Recently Relevant to Health Maintenance Results * MM MAMMO DIGITAL VENU SCREEN BILAT (02/21/2024 10:47 AM EDT) Anatomical Region Laterality Modality Breast Bilateral Mammography 02/22/2024 1:14 PM EDT Impressions 02/22/2024 1:14 PM EDT Negative ([id number]-2) ~ RECOMMENDATION: Routine screening mammogram in 1 year. ~ DISCLAIMER * Any patient with a palpable abnormality, unexplained by breast imaging, should be managed on clinical basis by the attending physician. * Breast imaging has a false negative rate of 15%. * The patient was notified by mail of the results of this examination. *The patient's information was entered into a reminder system with a target due date for the next mammogram, in accordance with the [employer] and the Society of Breast Imaging recommendations. Narrative 02/22/2024 1:14 PM EDT Procedure:MM MAMMO DIGITAL VENU SCREEN BILAT ~ Reason for exam: screening, asymptomatic. Z12.31-Encounter for screening mammogram for malignant neoplasm of [id number] ~ MM MAMMO DIGITAL VENU SCREEN BILAT Bilateral CC and MLO view(s) were taken. Technologist: RT Betsy There are scattered fibroglandular densities. Prior study comparison: Compared with prior studies the most recent being 01/25/15 No mammographic evidence of malignancy. ~ Procedure Note Armando Ribera MD - 02/22/2024 Procedure:MM MAMMO DIGITAL VENU SCREEN BILAT ~ Reason for exam: screening, asymptomatic. Z12.31-Encounter for screening mammogram for malignant neoplasm of [id number] ~ MM MAMMO DIGITAL EVNU SCREEN BILAT Bilateral CC and MLO view(s) were taken. Technologist: RT Betsy There are scattered fibroglandular densities. Prior study comparison: Compared with prior studies the most recentbeing 01/25/15 No mammographic evidence of malignancy. ~ IMPRESSION: Negative ([id number]-9) ~ RECOMMENDATION: Routine screening mammogram in 1 year. ~ DISCLAIMER * Any patient with a palpable abnormality, unexplained by breast imaging, should be managed on clinical basis by the attending physician. * Breast imaging has a false negative rate of 15%. * The patient was notified by mail of the results of this examination. *The patient's information was entered into a reminder system with atarget due date for the next mammogram, in accordance with the [employer] and the Society of Breast Imaging recommendations. Anderson Mina BOOKING PRIZER IMG MAMMOGRAPHY ORDERABLE S Final Result * (ABNORMAL) HEMOGLOBIN A1C (06/02/2017 9:14 AM EDT) Hgb A1c 7.4(H) <=7.0 % [facility] Comment: Reference Interval for Hgb A1c Hgb A1c Interpretation < 6.0 Non-Diabetic Range 6.0 - 7.0 ADA Therapeutic Target > 7.0 Action suggested Blood specimen (specimen) UPPER LIMB STRUCTURE / Unknown 06/02/2017 9:14 AM EDT 06/02/2017 12:30 PM EDT us Vamsi Astorga MD CHEMISTRY ORDERABLES Final Res ult Performing Organization Address [facility] [place] [address] * (ABNORMAL) LIPID SCREEN (06/02/2017 9:14 AM EDT) Cholesterol 305(H) <=200 mg/dL [facility] Comment: < 200 Desirable 200 - 239 Borderline High >= 240 High Triglyceride 269(H) <=150 mg/dL [facility] Comment: < 150 Normal 150 - 199 Borderline High 200 - 499 High >= 500 Very High HDL 44 >=40 mg/dL [facility] Comment: > 60 Optimal 40 - 60 Acceptable < 40 Low LDL Calculated 207(H) <=100 mg/dL [facility] Comment: < 100 Optimal 100 - 129 Near or above optimal 130 - 159 Borderline High 160 - 189 High >= 190 Very High Blood specimen (specimen) UPPER LIMB STRUCTURE / Unknown 06/02/2017 9:14 AM EDT 06/02/2017 12:30 PM EDT us Vamsi Astorga MD CHEMISTRY ORDERABLES Final Res ult Performing Organization Address [facility] [place] [address] from Last 3 Months or Most Recently Relevant to Health Maintenance Advance Directives For more information, please contact: [phone] * Full Code (Latest Code Status on File) Date Activated Date Inactivated Comments 09/10/2014 6:57 AM 09/11/2014 8:28 PM
--- OUTSIDE RECORDS SUMMARY | 2025-02-08 13:45 | XMS_ITS | Continuity of Care Document ---
Author Organization [facility], [facility] Address [address] [place] [address] Assessment Encounter Date Assessment Date Assessment LastModified by Organization Details LastModified Time 01/26/2025 01/26/2025 HTN - Benefit from both chlorthalidone and lisinopril for cardiac and kidneys, will decrease both doses to help with hypotension. May consider stopping one at follow up if hypotension continues. Continue current regimen. Labs per plan below. She is going to hospital this weekend for pre-op labs and will berry picker these orders as well. Follow up [...] lipid panel, serum 2024 025 RATNA [facility] ([place] [address] [place], [address], 01/27/2025 14:50:38 CBC w/ auto diff 2024 025 [email or web address] [facility] ([place] [address] [place], [address], 02/02/2025 08:39:04 CMP, serum or plasma 2024 025 [email or web address] [facility] ([place] [address] [place], [address], 02/02/2025 08:39:04 TSH, ultra- sensit aurea, serum 2024 025 [email or web address] [facility] ([place] [address] [place], [address], 02/02/2025 08:39:04 Referral None record ed. Procedures None record ed. Surgeries None record ed. Imaging None record ed. Medication Orders chlort halido ne 12.5 mg tablet 2024 025 [facility], [address] [place] [address], [address], 01/26/2025 14:49:35 lisino pril 2.5 mg tablet 2024 025 [facility], [address] [place] [address], [address], 01/26/2025 14:49:35 trazod one 100 mg tablet 2024 025 [facility], [address] [place] [address], [address], 01/26/2025 14:49:34 prazos in 1 mg capsul e 2024 025 [facility], [address] [place] [address], [address], 01/26/2025 14:49:34 Patient TargetsNo targets recorded. Patient Instructions Encounter Date Encounter Id Patient Instructions Last Modified By Organization Details Last Modified Time 01/26/2025 [id number] learning about type 2 diabetes Not available 01/26/2025 14:49:27 type 2 diabetes: care instructions Not available 01/26/2025 14:49:27 Reason for Referral None Reported. Results Created Date Observation Date Name Description Value Unit Range Abnormal Flag Note LastModifiedBy Organization Detail LastModifiedTime 05/14/20 25 XR, thora cic spine , 3 view No observ ation record ed. [facility] - [address], [place], [address], 01/11/2025 15:55:32 Result Notes None recorded. Problems Name Problem SNOMED Code Status Onset Date Resolution Date Notes Provider Name and Address Organization Details Recorded Time Type 2 diabetes mellitus 59180962 Completed 202301/10/2025 Jojo Rausch NP [address] [place] [address], [address] 8, [employer] 5 12:10:31 Bipolar disorder 73485137 Active 2023 Jojo Rausch NP [address] [place] [address], [address] 8, [employer] 4 12:51:59 Foot callus 900499229 Completed 202305/31/2024 Jojo Rausch NP [address] [place] [address], [address] 8, [employer] 4 10:49:07 Cerebrov ascular accident 480860286 Completed 202310/06/2023 Occurred about 8 years ago - [place], [facility]-[address], [address], [employer] 4 11:40:26 Neuropat hy 217319264 Active 2023 Jojo Rausch NP [address] [place] [address], [address] 8, [employer] 4 12:52:09 Type 2 diabetes mellitus without complica tion 451234965 Active 2023 Jojo Rausch NP [address] [place] [address], 9[address]393 8, [employer] 4 12:52:14 Chronic obstruct aurea pulmonar y disease 46452203 Active 2023 Jojo Rausch NP [address] [place] [address], [address] 8, [employer] 4 12:52:03 Primary insomnia 9886569 Active 2023 Jojo Rausch NP [address] [place] [address], [address] 8, [employer] 4 12:52:11 Insomnia 991874083 Active 2023 Jojo Rausch NP [address] [place] [address], [address] 8, [employer] 5 11:41:00 Chalazio n of lower eyelid of left eye 71900269365 9102 Completed 202305/31/2024 Jojo Rausch NP [address] [place] [address], 57[address]164 8, [employer] 4 10:49:03 Menopaus al symptom 48827003 Active 2023 Jojo Rausch NP [address] [place] [address], 694[address]294 8, [employer] 4 10:49:01 Epidermo id cyst of eyelid Completed 202305/31/2024 Jojo Rausch NP [address] [place] [address], 9[address] 8, [employer] 4 10:48:58 Colorect al cancer detected by DNA-base d stool screenin g 891258062 Active 2023 Jojo Rausch NP [address] [place] [address], 85[address]796 8, [employer] 4 12:19:01 Mixed hyperlip idemia 490293581 Active 2023 Jojo Rausch NP [address] [place] [address], 527[address] 8, [employer] 12:18:57 Smoker 65696982 Active 2023 Jojo Rausch NP [address] [place] [address], 56[address] 8, [employer] 12:18:53 Snoring 60816323 Active 2023 Jojo Rausch NP [address] [place] [address], 605[address] 8, [employer] 12:18:52 Dyspnea 338653525 Active 2023 Jojo Rausch NP [address] [place] [address], 91266-297 8, [employer] 12:18:59 Numbness of hand 972488298 Active 2023 Jojo Rausch NP [address] [place] [address], 877[address] 8, [employer] 12:18:54 Abscess of skin and/or subcutan eous tissue 35343506 Completed 202306/28/2024 Jojo Rausch NP [address] [place] [address], 45850[address]888 8, [employer] 12:14:57 Anxiety 31339200 Active 2023 Jojo Rausch NP [address] [place] [address], 11358[address] 8, [employer] 12:19:12 Morbid obesity 333990746 Active 2023 Jojo Rausch NP [address] [place] [address], 71575-[address] 8, [employer] 12:15:05 Obesity 206689821 Completed 202306/28/2024 Jojo Rausch NP [address] [place] [address], 840[address]894 8, [employer] 12:15:08 Depressi ve disorder 00092592 Completed 202301/10/2025 Jojo Rausch NP [address] [place] [address], [address] 8, [employer] 5 11:29:45 Median nerve entrapme nt 832202940 Active 2023 Jojo Rausch NP [address] [place] [address], 638[address]949 8, [place] [employer] 11:29:49 Mixed sensory- motor polyneur opathy 7455894 Active 2023 Jojo Rausch NP [address] [place] [address], 74[address] 8, [place] [employer] 11:29:50 Median nerve entrapme nt 824859798 Completed 202301/10/2025 Jojo Rausch NP [address] [place] [address], 959[address]407 8, [place] [employer] 11:29:47 Obstruct aurea sleep apnea syndrome 44672072 Active 2023 Jojo Rausch NP [address] [place] [address], 28888[address] 8, [employer] 11:29:55 Acute exacerba tion of chronic obstruct aurea pulmonar y disease 828836626 Completed 202301/10/2025 Jojo Rausch NP [address] [place] [address], 61443[address]758 8, [employer] 11:29:36 Nicotine dependen ce 57631466 Active 2023 Jojo Rausch NP [address] [place] [address], 540[address]849 8, [employer] 11:29:52 Urine microalb umin detected 983725093 Completed 202301/10/2025 Jojo Rausch NP [address] [place] [address], 10111-905 8, [employer] 11:30:28 Acute thoracic back pain 942829633 Active 2024 Jojo Rausch NP [address] [place] [address], 71[address] 8, [employer] 11:29:39 Nightmar es 754003053 Active 2024 Jojo Rausch NP [address] [place], [address], [employer] 5 11:42:36 Type 2 diabetes mellitus 78195371 Active 2024 Jojo Rausch NP [address] [place] [address], 86631-975 8, [employer] 5 12:10:31 Hyperten sive disorder 27288162 Active 2024 Jojo Rausch NP [address] [place] [address], 05543-922 8, [employer] 5 16:21:20 Problem Notes None recorded. Procedures Surgical History Date Name Laterality Status Provider Name and Address Organization Details Recorded Time 05/31/20 24 I&D completed Jojo Rausch NP [address] [place] [address], [address], [employer] 05/31/2024 12:16:02 02/28/20 24 Date of Last Pap Smear completed [facility] [employer] 02/28/2024 10:46:01 02/21/20 24 Most Recent Mammogram completed [employer] 02/28/2024 10:46:41 Hernia Repair completed [employer] 10/06/2023 10:58:42 Cholecystectomy completed [employer] 10/06/2023 11:12:44 Imaging Results None recorded. Procedure Notes None recorded. Medical Equipment None Reported. Allergies Allergen ID Allergen Name Allergen Category Reaction Reaction Severity Criticality Documentation Date Start Date Code Code System Note Provider Name and Address Organization Details Recorded Time 51026 Phenergan medicatio n itching rash Not available Not available Not available 10/06/20[address] [facility] [employer] 4 11:05:15 Medications Name Sig Start Date Stop [...] Not Available Not Available Not Avai lable Trelegy Ellipta 200 mcg-62.5 mcg-25 mcg powder for [...] Available Not Available No t Available Vitals None Recorded Social History Question Answer Notes LastModified by Organizat ion Details LastModified Time Tobacco Smoking Status [facility] [employer] 10/06/2023 10:58:41 Do You Have An Advance Directive? No [email or web address] Information not available 10/06/2023 Is Your Home Air Conditioned? No [email or web address] Information not available 10/06/2023 Do You Wear A Helmet When Biking? No [email or web address] Information not available 10/06/2023 Are You Blind Or Do You Have Difficulty Seeing? No Information not available 10/06/2023 What Is Your Level Of Caffeine Consumption? Occasional [email or web address] Information not available 10/06/2023 In The 14 Days Before Symptom Onset, Have You Had Close Contact With A Laboratory-confir med COVID-19 While That Case Was Ill? No [email or web address] Information not available 05/31/2024 In The 14 Days Before Symptom Onset, Have You Had Close Contact With A Person Who Is Under Investigation For COVID-19 While That Person Was Ill? No [email or web address] Information not available 05/31/2024 Have You Been To An Area Known To Be High Risk For COVID-19? No [email or web address] Information not available 10/06/2023 Are You Deaf Or Do You Have Serious Difficulty Hearing? No [email or web address] Information not available 10/06/2023 What Type Of Diet Are You Following? REGULAR [email or web address] Information not available 10/06/2023 How Many Days Of Moderate To Strenuous Exercise, Like A Brisk Walk, Did You Do In The Last 7 Days? 1 [email or web address] Information not available 10/06/2023 Have There Been Any Changes To Your Family Or Social Situation? Yes [email or web address] Information no t available 10/06/2023 When Did You Quit Smoking? 1-5yearssincel astcigarette Information not available 07/31/2024 Are There Any Guns Present In Your Home? No [email or web address] Information not available 10/06/2023 Which Of Your Hands Is Dominant? Left [email or web address] Information not available 10/06/2023 What Is Your Home Situation? Other [email or web address] Information not available 10/06/2023 Do You Have A Medical Power Of Middle Or Intermediate School Principal? No [email or web address] Information not available 10/06/2023 What Was The Date Of Your Most Recent Tobacco Screening? 01/10/2025 [email or web address] Information not available 01/10/2025 What Is Your Current Pack Years? 30ormorepackye ars [email or web address] Information not available 10/06/2023 Do You Have Any Pets? Yes [email or web address] Information not available 10/06/2023 Do You Use Protection During Sex? No [email or web address] Information not available 10/06/2023 What Is Your Relationship Status? Information not available 10/06/2023 Have You Repeated Any Grades? No [email or web address] Information not available 10/06/2023 Do You Use Your Seat Belt Or Car Seat Routinely? Yes [email or web address] Information not available 10/06/2023 Are You Sexually Active? Yes Information not available 10/06/2023 Do You Have Any Siblings? Yes [email or web address] Information not available 10/06/2023 Do You Have Smoke And Carbon Monoxide Detectors In Your Home? No [email or web address] Information not available 10/06/2023 At What Age Did You Start Smoking Tobacco? 12 [email or web address] Information not available 10/06/2023 Are You Passively Exposed To Smoke? No Information no t available 07/31/2024 Are There Any Smokers In Your House? No Information not available 07/31/2024 How Much Tobacco Do You Smoke? 0.5 PPD [email or web address] Information not available 01/12/2024 Do You Participate In Social Media? Yes [email or web address] Information not available 05/31/2024 Do You Use Sunscreen Routinely? No [email or web address] Information not available 10/06/2023 Has Tobacco Cessation Counseling Been Provided? No [email or web address] Information not available 10/06/2023 How Many Years Have You Smoked Tobacco? 41 Information not available 10/06/2023 Have You Recently Traveled Abroad? No [email or web address] Information not available 10/06/2023 Do You Have Difficulty Walking Or Climbing Stairs? Yes Information not available 10/06/2023 Do You Have Any Dietary Restrictions? No [email or web address] Information not available 05/31/2024 Sex: Female Functional Status Question Answer Note LastModified by Organizat ion Details LastModified Time Do you use any illicit or recreational drugs? No [email or web address] Information not available 10/06/2023 Do you or have you ever used any other forms of tobacco or nicotine? No [email or web address] Information not available 10/06/2023 Are you currently employed? No [email or web address] Information not available 10/06/2023 Do you have transportation difficulties? No [email or web address] Information not available 05/31/2024 Are you able to walk? YESWOREST [email or web address] Information not available 10/06/2023 Do you have difficulty doing errands alone? Yes [email or web address] Information not available 10/06/2023 Are you able to care for yourself? Yes [email or web address] Information n ot available 10/06/2023 Do you have difficulty dressing or bathing? No [email or web address] Information not available 10/06/2023 What is your exercise level? Occasional [email or web address] Information not available 10/06/2023 Mental Status Question Answer Note LastModified by Organizat ion Details LastModified Time Do you feel stressed (tense, restless, nervous, or anxious, or unable to sleep at night)? DT3439-6 [email or web address] Information not available 05/31/2024 Do you have difficulty concentrating, remembering or making decisions? Yes [email or web address] Information no t available 10/06/2023 Are you or have you been involved with bullying? No [email or web address] Information not available 10/06/2023 Family History Relationship Description Onset Age of this Age Resolved Age Notes LastModified by Organization Details LastModified Time Mother Hypercholest erolemia [email or web address] Not available 02/2024 10:58:40 Mother Hypertensive disorder [email or web address] Not available 02/2024 10:58:40 Sister Asthma [email or web address] Not availab le 10/06/2023 10:58:40 Sister Hypertensive disorder [email or web address] Not available 02/2024 10:58:40 Father Harmful pattern of use of alcohol [email or web address] Not available 02/2024 10:58:40 Father Heart disease [email or web address] Not available 02/2024 10:58:40 Medical History Condition [...] zoster recombinant 4 completed Jojo Rausch NP [address] [place] [address], [address], [employer] 05/31/2024 12:18:11 Influenza, split virus, trivalent, PF 4 completed Jojo Rausch NP [address] [place] [address], [address], [employer] 05/31/2024 12:08:01 zoster recombinant 4 completed Jojo Rausch NP [address] [place] [address], [address], [employer] 08/03/2024 08:42:37 Tdap 4 completed Jojo Rausch NP [address] [place] [address], [address], [employer] 08/25/2024 12:32:13 Pneumococcal conjugate PCV15, polysaccharide [id number] conjugate, adjuvant, PF 4 completed Jojo Rausch NP [address] [place] [address], [address], [employer] 08/25/2024 12:32:13 Influenza, split virus, quadrivalent, preservative 7 completed PJ [place], [place] [employer] 10/06/2023 11:04:36 Past Encounters Encounter ID Performer Location Encounter Start Date Encounter Closed Date Diagnosis/Indication Diagnosis SNOMED-CT Code Diagnosis ICD10 Code Diagnosis Note [id number] Jojo Rausch NP [address] [address] 01/10/2025 11:03:28 01/10/2025 12:40:04 Acute thoracic back pain 096183431 M54.6 Chronic ob structive pulmonary disease 71942335 J44.9 Type 2 román betes mellitus 79022807 E11.29 R80.9 Mixed hyperlipidemia 267 211131 E78.2 Bipolar disorder 9330509 4 F31.9 Type 2 román betes mellitus without complication 326034312 E11.9 Obstructiv e sleep apnea syndrome 09167401 G47.33 Insomnia 499919046 G47.0 0 Nightmares 102637350 F51 .5 Hypertensive disorder 38 973143 I10 Nicotine dependence 5629 4008 F17.200 Therapeuti c drug monitoring assay 99042662 Z51.81 [id number] Jojo Rausch NP [address] [address] 01/26/2025 14:19:45 01/26/2025 14:52:55 Nightmares 274756314 F51.5 Insomnia 805934237 G47.0 0 Hypertensive disorder 38 881072 I10 Type 2 román betes mellitus 03065644 E11.9 E11.29 R80.9 Mixed hyperlipidemia 267 944557 E78.2 Anxiety 66337386 F41.9 Health Concerns Section Related Observation LastModified by Organization Detai ls LastModified Time None Recorded Concern Status LastModified by Organization Details LastModified Time None Recorded Payers Encounter Date Sequence Insurance Name Policy Number Policy Elmore Covered Member ID Elmore Member ID Guarantor Name 01/26/2025 1 [facility] [place] [employer] [id number] Domitila Player Notes Date Note Type Note Provider Name and Address Organization Details Recorded Time 01/26/2025 text/html TeleHealth:Tenzin jackson 's identity has been confirmed with name and date of .Patient/fami ly member provided verbal consent for TeleHealth services.Patient and provider are within the [facility], benefits and alternatives of care provided via [...] dizziness upon standing. Jojo Rausch NP [address] [place], [address], [facility] [employer] 01/29/2025 12:12:44 OBGyn Episode No OBEpisode recorded.
--- OUTSIDE RECORDS SUMMARY | 2025-02-08 13:45 | XMS_ITS | Continuity of Care Document ---
Author Organization [place] - [employer], [facility] Address [address] [place] [address] Assessment Encounter Date Assessment Date Assessment LastModified by Organization Details LastModified Time 01/10/2025 01/10/2025 Diabetes - Diabetic eye exam - had at [facility]. Labs today. On a statin. On CRISTAL inhibitor. Continue current regimen, pending lab results. COPD - continue current regimen. Call pulmonology, I suspect follow up needs to be scheduled. Sleep apnea - Start CPAP as previously recommended to hopefully help with daytime sleepiness and sleep quality. Bipolar/insomnia /anxiety - Stop seroquel. She was on multiple [...] insomnia via telehealth. Not available 01/11/2025 16:23:04 Plan of Treatment Reminders Order Date Submit [...] available Lab lipid panel, serum 2024 025 [email or web address] [facility] ([place]), [address] [facility], [place], [address], 01/31/2025 15:00:23 HbA1c (hemog lobin A1c), blood 2024 025 [email or web address] [facility] ([place]), [address] [place], [address], 02/01/2025 08:37:25 CMP, serum or plasma 2024 025 [email or web address] [facility] ([place]), [address] [facility], [place], [address], 01/31/2025 15:00:23 CBC w/ auto diff 2024 025 [email or web address] [facility] ([place]), [address] [place], [address], 01/31/2025 15:00:23 Referral None record ed. Procedures None record ed. Surgeries None record ed. Imaging XR, thorac ic spine, 3 view [address], [address] [place] [address], [address], 01/12/2025 09:57:18 Medication Orders lisino pril 5 mg tablet 2024 025 [facility] [address], [facility] [place], [address], 01/29/2025 12:19:41 trazod one 50 mg tablet 2024 025 [facility] [address], [facility] [place], [address], 01/10/2025 11:51:25 Ventol in HFA 90 mcg/ac tuatio n aeroso l inhale r 2024 025 [facility] [address], [facility] [place], [address], 01/10/2025 11:51:31 prazos in 1 mg capsul e 2024 025 [facility] [address], [address] [place] [address], [id number], 01/10/2025 11:51:34 nicoti ne 21 mg/24 hr daily transd ermal patch 2024 025 [facility] [address], [address] [place] [address], [address], 01/10/2025 11:51:33 clonaz epam 1 mg tablet 2024 025 [facility] [address], [address] [place] [address], [address], 01/10/2025 11:52:17 glipiz josue 5 mg tablet 2024 025 [facility] [address], [address] [place] [address], [address], 01/10/2025 11:51:35 OneTou ch Ultra Test strips 2024 025 [facility] [address], [address] [place] [address], [address], 01/10/2025 11:51:20 Patient TargetsNo targets recorded. Patient Instructions Encounter Date Encounter Id Patient Instructions Last Modified By Organization Details Last Modified Time 01/10/2025 [id number] learning about type 2 diabetes Not available 01/10/2025 11:51:03 type 2 diabetes: care instructions Not available 01/10/2025 11:51:04 insomnia: care instructions Not available 01/10/2025 11:51:03 bipolar disorder : care instructions Not available 01/10/2025 11:51:04 learning about mood disorders Not available 01/10/2025 11:51:03 Reason for Referral None Reported. Results Created Date Observation Date Name Description Value Unit Range Abnormal Flag Note LastModifiedBy Organization Detail LastModifiedTime 01/11/20 25 XR, thora cic spine , 3 view No observ ation record ed. [facility] [address], [place], [address], 01/11/2025 15:55:32 Result Notes None recorded. Problems Name Problem SNOMED Code Status Onset Date Resolution Date Notes Provider Name and Address Organization Details Recorded Time Type 2 diabetes mellitus 70188063 Completed 202301/10/2025 Jojo Rausch NP [address] [place] [address], [address], [employer] 5 12:10:31 Bipolar disorder 03914046 Active 2023 Jojo Rausch NP [address] [place] [address], [address] 8, [employer] 4 12:51:59 Foot callus 314007482 Completed 202305/31/2024 Jojo Rausch NP [address] [place] [address], [address] 8, [employer] 4 10:49:07 Cerebrov ascular accident 867741497 Completed 202310/06/2023 Occurred about 8 years ago - [place], [facility]-[address], [address], [employer] 4 11:40:26 Neuropat hy 367695072 Active 2023 Jojo Rausch NP [address] [place] [address], [address] 8, [employer] 4 12:52:09 Type 2 diabetes mellitus without complica tion 781714444 Active 2023 Jojo Rausch NP [address] [place] [address], [address] 8, [employer] 4 12:52:14 Chronic obstruct aurea pulmonar y disease 35459412 Active 2023 Jojo Rausch NP [address] [place] [address], [address] 8, [employer] 12:52:03 Primary insomnia 4694948 Active 2023 Jojo Rausch, [employer] [address] [place] [address], [address] 8, [employer] 12:52:11 Insomnia 555201330 Active 2023 Jojo Rausch, [employer] [address] [place] [address], [address] 8, [employer] 5 11:41:00 Chalazio n of lower eyelid of left eye 14639612960 9102 Completed 202305/31/2024 Jojo Rausch NP [address] [place] [address], [address] 8, [employer] 4 10:49:03 Menopaus al symptom 82561261 Active 2023 Jojo Rausch NP [address] [place] [address], 965[address] 8, [employer] 10:49:01 Epidermo id cyst of eyelid Completed 202305/31/2024 Jojo Rausch NP [address] [place] [address], [address] 8, [employer] 4 10:48:58 Colorect al cancer detected by DNA-base d stool screenin g 245985392 Active 2023 Jojo Rausch NP [address] [place] [address], 056[address] 8, [employer] 12:19:01 Mixed hyperlip idemia 689809883 Active 2023 Jojo Rausch NP [address] [place] [address], 475[address] 8, [employer] 12:18:57 Smoker 33625177 Active 2023 Jojo Rausch [employer] [address] [place] [address], [address] 8, [employer] 12:18:53 Snoring 41167311 Active 2023 Jojo Rausch NP [address] [place] [address], [address] 8, [employer] 12:18:52 Dyspnea 495133189 Active 2023 Jojo Rausch NP [address] [place] [address], [address]59[address] 8, [place] [employer] 12:18:59 Numbness of hand 906135871 Active 2023 Jojo Rausch NP [address] [place] [address], [address] 8, [place] [employer] 12:18:54 Abscess of skin and/or subcutan eous tissue 72047304 Completed 202306/28/2024 Jojo Rausch NP [address] [place] [address], 678[address] 8, [employer] 12:14:57 Anxiety 46560666 Active 2023 Jojo Rausch NP [address] [place] [address], 29[address]81 8, [employer] 12:19:12 Morbid obesity 908214873 Active 2023 Jojo Rausch NP [address] [place] [address], 75[address] 8, [place] [employer] 12:15:05 Obesity 903370417 Completed 202306/28/2024 Jojo Rausch NP [address] [place] [address], 500[address] 8, [employer] 12:15:08 Depressi ve disorder 05257057 Completed 202301/10/2025 Jojo Rausch NP [address] [place] [address], 697[address] 8, [employer] 5 11:29:45 Median nerve entrapme nt 294773494 Active 2023 Jojo Rausch NP [address] [place] [address], 18[address]736 8, [employer] 11:29:49 Mixed sensory- motor polyneur opathy 9774303 Active 2023 Jojo Rausch NP [address] [place] [address], 48[address]748 8, [place] [employer] 11:29:50 Median nerve entrapme nt 978950296 Completed 202301/10/2025 Jojo Rausch NP [address] [place] [address], 46[address]677 8, [employer] 11:29:47 Obstruct aurea sleep apnea syndrome 22559180 Active 2023 Jojo Rausch NP [address] [place] [address], 224[address] 8, [employer] 11:29:55 Acute exacerba tion of chronic obstruct aurea pulmonar y disease 323647686 Completed 202301/10/2025 Jojo Rausch NP [address] [place] [address], [address] 8, [place] [employer] 11:29:36 Nicotine dependen ce 37885505 Active 2023 Jojo Rausch NP [address] [place] [address], [address] 8, [place] [employer] 11:29:52 Urine microalb umin detected 786022295 Completed 202301/10/2025 Jojo Rausch NP [address] [place] [address], 43396[address] 8, [employer] 11:30:28 Acute thoracic back pain 694259476 Active 2024 Jojo Rausch NP [address] [place] [address], 75699[address] 8, [employer] 11:29:39 Nightmar es 202697818 Active 2024 Jojo Rausch NP [address] [place] [address], 319[address]775 8, [employer] 5 11:42:36 Type 2 diabetes mellitus 04405045 Active 2024 Jojo Rausch NP [address] [place] [address], 76[address] 8, [employer] 5 12:10:31 Hyperten sive disorder 20310907 Active 2024 Jojo Rausch NP [address] [place] [address], 13[address] 8, [employer] 5 16:21:20 Problem Notes None recorded. Procedures Surgical History Date Name Laterality Status Provider Name and Address Organization Details Recorded Time 05/31/20 24 I&D completed Jojo Rausch NP [address] [place] [address], [address], [employer] 05/31/2024 12:16:02 02/28/20 24 Date of Last Pap Smear completed [employer] 02/28/2024 10:46:01 02/21/20 24 Most Recent Mammogram completed [employer] 02/28/2024 10:46:[address] [facility] [employer] 10/06/2023 10:58:[address] [employer] 10/06/2023 11:12:44 Imaging Results None recorded. Procedure Notes None recorded. Medical Equipment None Reported. Allergies Allergen ID Allergen Name Allergen Category Reaction Reaction Severity Criticality Documentation Date Start Date Code Code System Note Provider Name and Address Organization Details Recorded Time 41235 Phenergan medicatio n itching rash Not available Not available Not available 10/06/2023 64775 8 RxNorm PJ FINLEY [facility], [employer] 4 11:05:15 Medications Name Sig Start [...] Updated DateTime 5 160.02 cm 40.3 kg/m2 879647. 87 g 99 /min 90 % 90 % 101 mm[Hg] 71 mm[Hg] Natividad Miller [employer] 11:20:14 Social History Question Answer Notes LastModified by Organizat ion Details LastModified Time Tobacco Smoking Status Current Every Day Smoker PJ FINLEY [place], [employer] 10/06/2023 10:58:41 Do You Have An Advance Directive? No [email or web address] Information not available 10/06/2023 Is Your Home Air Conditioned? No [email or web address] Information not available 10/06/2023 Do You Wear A Helmet When Biking? No [email or web address] Information not available 10/06/2023 Are You Blind Or Do You Have Difficulty Seeing? No [email or web address] Information not available 10/06/2023 What Is Your Level Of Caffeine Consumption? Occasional [email or web address] Information not available 10/06/2023 In The 14 Days Before Symptom Onset, Have You Had Close Contact With A Laboratory-confir med COVID-19 While That Case Was Ill? No [email or web address] Information not available 05/31/2024 In The 14 Days Before Symptom Onset, Have You Had Close Contact With A Person Who Is Under Investigation For COVID-19 While That Person Was Ill? No [email or web address] Information not available 05/31/2024 Have You Been To An Area Known To Be High Risk For COVID-19? No [email or web address] Information not available 10/06/2023 Are You Deaf Or Do You Have Serious Difficulty Hearing? No [email or web address] Information not available 10/06/2023 What Type Of Diet Are You Following? REGULAR [email or web address] Information not available 10/06/2023 How Many Days Of Moderate To Strenuous Exercise, Like A Brisk Walk, Did You Do In The Last 7 Days? 1 [email or web address] Information not available 10/06/2023 Have There Been Any Changes To Your Family Or Social Situation? Yes [email or web address] Information no t available 10/06/2023 When Did You Quit Smoking? 1-5yearssincel astcikateyette Information not available 07/31/2024 Are There Any Guns Present In Your Home? No [email or web address] Information not available 10/06/2023 Which Of Your Hands Is Dominant? Left [email or web address] Information not available 10/06/2023 What Is Your Home Situation? Other [email or web address] Information not available 10/06/2023 Do You Have A Medical Power Of Chamber Walker? No [email or web address] Information not available 10/06/2023 What Was The Date Of Your Most Recent Tobacco Screening? 01/10/2025 Information not available 01/10/2025 What Is Your Current Pack Years? 30ormorepackye ars apqbdotfa586 Information not available 10/06/2023 Do You Have Any Pets? Yes [email or web address] Information not available 10/06/2023 Do You Use Protection During Sex? No [email or web address] Information not available 10/06/2023 What Is Your Relationship Status? [email or web address] Information not available 10/06/2023 Have You Repeated Any Grades? No [email or web address] Information not available 10/06/2023 Do You Use Your Seat Belt Or Car Seat Routinely? Yes [email or web address] Information not available 10/06/2023 Are You Sexually Active? Yes [email or web address] Information not available 10/06/2023 Do You Have Any Siblings? Yes [email or web address] Information not available 10/06/2023 Do You Have Smoke And Carbon Monoxide Detectors In Your Home? No [email or web address] Information not available 10/06/2023 At What Age Did You Start Smoking Tobacco? 12 [email or web address] Information not available 10/06/2023 Are You Passively Exposed To Smoke? No Information no t available 07/31/2024 Are There Any Smokers In Your House? No Information not available 07/31/2024 How Much Tobacco Do You Smoke? 0.5 PPD [email or web address] Information not available 01/12/2024 Do You Participate In Social Media? Yes Information not available 05/31/2024 Do You Use Sunscreen Routinely? No [email or web address] Information not available 10/06/2023 Has Tobacco Cessation Counseling Been Provided? No [email or web address] Information not available 10/06/2023 How Many Years Have You Smoked Tobacco? 41 ibtnrkvdm215 Information not available 10/06/2023 Have You Recently Traveled Abroad? No [email or web address] Information not available 10/06/2023 Do You Have Difficulty Walking Or Climbing Stairs? Yes [email or web address] Information not available 10/06/2023 Do You Have Any Dietary Restrictions? No [email or web address] Information not available 05/31/2024 Sex: Female Functional Status Question Answer Note LastModified by Organizat ion Details LastModified Time Do you use any illicit or recreational drugs? No [email or web address] Information not available 10/06/2023 Do you or have you ever used any other forms of tobacco or nicotine? No [email or web address] Information not available 10/06/2023 Are you currently employed? No fornicdup112 Information not available 10/06/2023 Do you have transportation difficulties? No [email or web address] Information not available 05/31/2024 Are you able to walk? YESWOREST myzhqwkop728 Information not available 10/06/2023 Do you have difficulty doing errands alone? Yes [email or web address] Information not available 10/06/2023 Are you able to care for yourself? Yes nrcppbodc773 Information n ot available 10/06/2023 Do you have difficulty dressing or bathing? No Information not available 10/06/2023 What is your exercise level? Occasional [email or web address] Information not available 10/06/2023 Mental Status Question Answer Note LastModified by Organizat ion Details LastModified Time Do you feel stressed (tense, restless, nervous, or anxious, or unable to sleep at night)? [id number] [email or web address] Information not available 05/31/2024 Do you have difficulty concentrating, remembering or making decisions? Yes gjseeqadb751 Information no t available 10/06/2023 Are you or have you been involved with bullying? No [email or web address] Information not available 10/06/2023 Family History Relationship Description Onset Age of this Age Resolved Age Notes LastModified by Organization Details LastModified Time Mother Hypercholest erolemia [email or web address] Not available 02/2024 10:58:40 Mother Hypertensive disorder [email or web address] Not available 02/2024 10:58:40 Sister Asthma [email or web address] Not availab le 10/06/2023 10:58:40 Sister Hypertensive disorder [email or web address] Not available 02/2024 10:58:40 Father Harmful pattern of use of alcohol Not available 02/2024 10:58:40 Father Heart disease [email or web address] Not available 02/2024 10:58:40 Medical History Condition [...] Recorded Time zoster recombinant 4 completed Jojo Rausch, MEY [address] [place] [address], [address], [employer] 05/31/2024 12:18:11 Influenza, split virus, trivalent, PF 4 completed Jojo Rausch, MEY [address] [place] [address], [address], [employer] 05/31/2024 12:08:01 zoster recombinant 4 yoav Rausch NP [address] [place] [address], [address], [employer] 08/03/2024 08:42:37 Tdap 4 yoav Rausch NP [address] [place] [address], [address], [employer] 08/25/2024 12:32:13 Pneumococcal conjugate PCV15, polysaccharide OSR333 conjugate, adjuvant, PF 4 completed Jojo Rausch NP [address] [place], [address], [employer] 08/25/2024 12:32:13 Influenza, split virus, quadrivalent, preservative 7 completed PJ beaver, [employer] 10/06/2023 11:04:36 Past Encounters Encounter ID Performer Location Encounter Start Date Encounter Closed Date Diagnosis/Indication Diagnosis SNOMED-CT Code Diagnosis ICD10 Code Diagnosis Note [id number] Jojo Rausch NP [address] [address] 01/10/2025 11:03:28 01/10/2025 12:40:04 Acute thoracic back pain 686741298 M54.6 Chronic ob structive pulmonary disease 37371666 J44.9 Type 2 román betes mellitus 22010373 E11.29 R80.9 Mixed hyperlipidemia 267 665487 E78.2 Bipolar disorder 9151631 4 F31.9 Type 2 román betes mellitus without complication 009912225 E11.9 Obstructiv e sleep apnea syndrome 63214602 G47.33 Insomnia 584714034 G47.0 0 Nightmares 066636887 F51 .5 Hypertensive disorder 38 995601 I10 Nicotine dependence 5629 4008 F17.200 Therapeuti c drug monitoring assay 25373318 Z51.81 Health Concerns Section Related Observation LastModified by Organization Detai ls LastModified Time None Recorded Concern Status LastModified by Organization Details LastModified Time None Recorded Payers Encounter Date Sequence Insurance Name Policy Number Policy Elmore Covered Member ID Elmore Member ID Guarantor Name 01/10/2025 1 [facility] (MEDICAID REPLACEMENT - HMO) [id number] [id number] Domitila Player Notes Date Note Type Note Provider Name and Address Organization Details Recorded Time 01/10/2025 text/html Pt. presents for follow up on multiple concerns:Anxiety / Bipolar disorder/insomnia- Still not sleeping stew is not working at all anymore. She is awakened from sleep multiple times throughout the night. Klonopin works when she takes it. She does [...] She has been referred to surgeon in [place] for elbow surgery. She is also going to start PT.She has had a few episodes of dizziness. Her blood pressure has been consistently low at last several visits. Jojo Rausch NP [address] [place] [address], [address], [facility] [employer] 01/11/2025 16:23:42 OBGyn Episode No OBEpisode recorded.
== END 2025-02-08 23:59 | disposition home or self-care (01) ==
LOC: RT 12:45
PROVIDERS: PCP Nurse Practitioner Family; Visit Provider Internal Medicine Pulmonary Disease
DX: R06.02 Shortness of breath (principal)
CPT/HCPCS: 94060; 94618; 94726; 94729